=== PATIENT | male | born 1970 | race African-American/Black ===

== ENCOUNTER 2016-09-29 19:30 | Inpatient (IN) | payer MEDICARE, MEDICAID ==
[~2016-09-29] VITALS: Ht 182.9 cm; Wt 111.0 kg
[~2016-09-29 19:30] MED LIST: CLOZ200T PO; DEPA500T3 PO; IBUP800T23 PO; LACT20SO4 PO; LITH300 PO; OMEP20TA39 PO; OMEP40CA2 PO; PALI156P IM; SENN1TAB11 PO
[2016-09-29 19:34] VITALS: BP 117/69; PULSE 129; RESP 16; TEMP 101.6; O2SAT 97
--- NOTE | 2016-09-29 20:49 | PD ---
Physical Exam Time Seen by Provider: 20:45 Narrative 46yo M c/o fever x 2 days. TMAX 102.6. Reports having trouble moving his bowels. Last BM 2 days ago. Feels bloated. Denies chest pain, SOB abd pain, vomiting. Denies cold symptoms or body aches. Last took Ibuprofen about 12:30 today. Patient seen in triage. VS reviewed. Awaiting bed placement. Data Data Last Documented VS Vital Signs Date Time Temp Pulse Resp B/P Pulse Ox O2 Delivery O2 Flow Rate FiO2 09/29/16 19:34 101.6 129 16 117/69 97 Room Air [facility] Supervised Visit with SHA: Jeanine Olson Sep 29, 2016 20:49
--- NOTE | 2016-09-29 22:02 | PD ---
HPI Chief Complaint: GI Complaint Time Seen by Provider: 22:01 Travel History International Travel<30 days: No Contact w/Intl Traveler<30days: No Traveled to known affect area: No History of Present Illness HPI The patient is a 47 year old male who presents to the [facility] emergency department with a history of febrile illness that he reports began 2 days ago. The patient reports that he's also had difficulty with constipation and has not moved his bowels for the last 3 days. He reports that his psychiatrist to give him a pelvic pelvic constipation, however he is unsure of the name of the pill and reports it has not been helping. The patient denies having a primary care physician. He reports that he is a part of the [facility] for his psychiatric care. He reports that he's been diagnosed with schizoaffective disorder. He reports that he is on Depakote, lithium, Clozaril. On review of systems, the patient denies any recent cough or congestion, neck pain, chest pain, shortness of breath, vomiting, diarrhea, urinary symptoms, or neurologic symptoms. The patient reports that he feels like his head is hot. The patient reports that he has abdominal bloating related to his constipation without any focal abdominal pain. He reports having nausea. [facility] Past Medical History Narrative Medical The patient's past medical history is significant for schizoaffective disorder, history of hypertension, history of acid reflux, and chronic constipation. Arthritis: No Asthma: No Autoimmune Disease: No Blood Disorders: No Anxiety: Yes Depression: No Heart Rhythm Problems: No Cancer: No (per patient girlfriend/) Cardiovascular Problems: No (per patient girlfriend/) High Cholesterol: No Chemotherapy: No Chest Pain: No Congestive Heart Failure: No COPD: No Cerebrovascular Accident: No Diabetes: No (per patient girlfriend/) Diminished Hearing: No Endocrine: No Gastrointestinal Disorders: No (Having some blotting and feelings of fullness) GERD: Yes Glaucoma: No Genitourinary: No Headaches: Yes (per patient girlfriend/) Hepatitis: No Hiatal Hernia: No Hypertension: Yes Immune Disorder: No Kidney Stones: No Musculoskeletal: No Neurologic: No Psychiatric: Yes Reproductive: No Respiratory: No Myocardial Infarction: No Radiation Therapy: No Renal Failure: No Schizophrenia: Yes Seizures: No (per patient girlfriend/) Sickle Cell Disease: No Sleep Apnea: No Thyroid Disease: No Ulcer: No Past Surgical History Narrative Surgical The patient's past surgical history is reportedly none. Abdominal Surgery: No AICD: No Cardiac Surgery: No Ear Surgery: No Endocrine Surgery: No Eye Surgery: No Genitourinary Surgery: No Gynecologic Surgery: No Joint Replacement: No Neurologic Surgery: No Oral Surgery: No Pacemaker: No Thoracic Surgery: No Social History Alcohol Use: No Tobacco Use: No Substance Use: No Allergies-Medications (Allergen,Severity, Reaction): Coded Allergies: Milk (Verified Adverse Reaction, Severe, Diarrhea, 09/29/16) Reported Meds & Prescriptions Reported Meds & Active Scripts Active Omeprazole 40 Mg Cap 40 Mg PO DAILY Hm Omeprazole (Omeprazole) 20 Mg Tab 40 Mg PO DAILY Ibuprofen 800 Mg Tab 800 Mg PO Q6H PRN Senna Plus 8.6-50 mg (Senna/Docusate Sodium) 1 Tab Tab 1 Tab PO DAILY Reported Omeprazole 40 Mg Cap 40 Mg PO DAILY Gasquet Carbonate 300 Mg Cap 300 Mg PO HS Depakote ER (Divalproex Sodium) 500 Mg Caro 1,000 Mg PO DAILY Clozapine 100 Mg Tab 300 Mg PO DAILY Invega Sustenna (Paliperidone Palmitate) 156 Mg/Ml Inj 156 Mg IM Q28D *FOR INTRAMUSCULAR USE ONLY* Clozapine 200 Mg Tab 300 Mg PO HS Clozapine 200 Mg Tab 50 Mg PO DAILY Depakote ER 500 mg (Divalproex Sodium) 500 Mg Tab 1 Tab PO DAILY Lactulose 30 Ml Syrp 30 Ml PO DAILY Lithotabs (Gasquet Carbonate) 300 Mg Tab 300 Mg PO DAILY Depakote ER 500 mg (Divalproex Sodium) 500 Mg Caro 1,000 Mg PO HS Review of Systems Except as stated in HPI: all other systems reviewed are Neg General / Constitutional: Positive: Fever Eyes: No: Visual changes HENT: No: Headaches, Rhinorrhea, Congestion Cardiovascular: No: Chest Pain or Discomfort, Dyspnea on exertion Respiratory: No: Shortness of Breath Gastrointestinal: Positive: Nausea, Constipation, No: Vomiting, Diarrhea, Abdominal Pain, Hematemesis, Hematochezia, Changes in Bowel Habits, Indigestion , Loss of Appetite Genitourinary: No: Urgency, Frequency, Dysuria Musculoskeletal: No: Pain Skin: No Rash Neurologic: No: Weakness, Focal Abnormalities, Headache, Change in Mentation, Slurred Speech, Sensory Disturbance Psychiatric: No: Depression Endocrine: No: Polydipsia Hematologic/Lymphatic: No: Easy Bruising Physical Exam Narrative General: The patient is well-developed well-nourished male in no acute distress. Head and Neck exam: Head is normocephalic atraumatic. Eyes: EOMI, pupils are equal round and reactive to light. Nose: Midline septum with pink mucous membranes Mouth: Dentition unremarkable. Moist mucus membranes. Posterior oropharynx is not erythematous. No tonsillar hypertrophy. Uvula midline. Airway patent. Neck: No palpable lymphadenopathy. No nuchal rigidity. No thyromegaly. Cardiovascular: Sinus tachycardia in the low 100 without murmurs, gallops, or rubs. No pulse deficit to the extremities and simultaneous auscultation and palpation of his radial artery. Lungs: Clear to auscultation bilaterally. No wheezes, rhonchi, or rales. Abdomen: Soft, with reported discomfort on palpation in the left lower quadrant of the abdomen, no other tenderness on palpation of the other quadrants of the abdomen. No guarding, rebound, or rigidity. No tenderness on palpation of McBurney's point. Normal bowel sounds are audible. Negative [place] sign. Extremities: No clubbing, cyanosis, or edema. 2+ pulses in all 4 extremities. No calf tenderness on palpation. Back: No costovertebral angle tenderness to palpation. Neurologic Exam: Grossly nonfocal. Skin Exam: No rash noted. Intact skin that is warm and dry. Data Data Last Documented VS Vital Signs Date Time Temp Pulse Resp B/P Pulse Ox O2 Delivery O2 Flow Rate FiO2 09/30/16 00:18 98.9 09/30/16 00:15 18 09/29/16 23:20 104 98 Room Air 09/29/16 22:46 130/65 Orders Electrocardiogram (09/29/16 22:10) Complete Blood Count With Diff (09/29/16 22:10) Comprehensive Metabolic Panel (09/29/16 22:10) Blood Culture (09/29/16 22:10) Lipase (09/29/16 22:10) Urinalysis - C+S If Indicated (09/29/16 22:10) Magnesium (Mg) (09/29/16 22:10) Valproic Acid (Depakene) (09/29/16 22:10) Gasquet (Li) (09/29/16 22:10) Chest, Single Ap (09/29/16 22:10) Iv Access Insert/Monitor (09/29/16 22:10) Ecg Monitoring (09/29/16 22:10) Oximetry (09/29/16 22:10) Lactic Acid Sepsis Protocol (09/29/16 22:10) Sodium Chlor 0.9% 1000 Ml Inj (Ns 1000 M (09/29/16 22:15) Ondansetron Inj (Zofran Inj) (09/29/16 22:15) Acetaminophen (Tylenol) (09/29/16 22:15) Sodium Chlor 0.9% 1000 Ml Inj (Ns 1000 M (09/30/16 00:15) Ceftriaxone Inj (Rocephin Inj) (09/30/16 00:15) Azithromycin Inj (Zithromax Inj) (09/30/16 00:15) Ct Abd/Pel W Iv Contrast(Rout) (09/30/16 00:16) Sodium Chlorid 0.9% 500 Ml Inj (Ns 500 M (09/30/16 00:30) Iohexol 350 Inj (Omnipaque 350 Inj) (09/30/16 01:09) Ondansetron Inj (Zofran Inj) (09/30/16 01:45) Admit Order (Ed Use Only) (09/30/16 02:10) Labs Laboratory Tests Test 09/29/16 09/29/16 09/30/16 22:25 23:15 00:35 Sodium Level 135 MEQ/L Potassium Level 5.3 MEQ/L Chloride Level 106 MEQ/L Carbon Dioxide Level 23.8 MEQ/L Anion Gap 5 MEQ/L Blood Urea Nitrogen 9 MG/DL Creatinine 1.55 MG/DL Estimat Glomerular Filtration 59 ML/MIN Rate Random Glucose 97 MG/DL Calcium Level 8.5 MG/DL Magnesium Level 2.3 MG/DL Total Bilirubin 0.6 MG/DL Aspartate Amino Transf 25 U/L (AST/SGOT) Alanine Aminotransferase 13 U/L (ALT/SGPT) Alkaline Phosphatase 47 U/L Total Protein 8.3 GM/DL Albumin 3.9 GM/DL Lipase 65 U/L Valproic Acid (Depakene) Level 88 MCG/ML Gasquet Level 0.5 MEQ/L Urine Color ORANGE Urine Turbidity HAZY Urine pH 6.0 Urine Specific [employer] 1.033 Urine Protein 100 mg/dL Urine Glucose (UA) NEG mg/dL Urine Ketones TRACE mg/dL Urine Occult Blood NEG Urine Nitrite NEG Urine Bilirubin NEG Urine Urobilinogen 4.0 MG/DL Urine Leukocyte Esterase NEG Urine RBC 2 /hpf Urine WBC 4 /hpf Urine Squamous Epithelial 1 /hpf Cells Urine Hyaline Casts 3 /lpf Urine Mucus MANY /lpf Microscopic Urinalysis Comment CULT NOT INDICATED Lactic Acid Level 2.1 mmol/L 1.5 mmol/L Thyroid Stimulating Hormone 0.753 uIU/ML 3rd Gen White Blood Count 8.6 TH/MM3 Red Blood Count 4.20 MIL/MM3 Hemoglobin 12.4 GM/DL Hematocrit 36.9 % Mean Corpuscular Volume 87.9 FL Mean Corpuscular Hemoglobin 29.5 PG Mean Corpuscular Hemoglobin 33.5 % Concent Red Cell Distribution Width 14.8 % Platelet Count 133 TH/MM3 Mean Platelet Volume 9.3 FL Neutrophils (%) (Auto) % Lymphocytes (%) (Auto) % Monocytes (%) (Auto) % Eosinophils (%) (Auto) % Basophils (%) (Auto) % Neutrophils # (Auto) TH/MM3 Lymphocytes # (Auto) TH/MM3 Monocytes # (Auto) TH/MM3 Eosinophils # (Auto) TH/MM3 Basophils # (Auto) TH/MM3 CBC Comment AUTO DIFF Differential Total Cells 100 Counted Neutrophils % (Manual) 60 % Band Neutrophils % 28 % Lymphocytes % 10 % Monocytes % 2 % Neutrophils # (Manual) 7.6 TH/MM3 Differential Comment FINAL DIFF MANUAL Toxic Vacuolation PRESENT Platelet Estimate LOW Platelet Morphology Comment NORMAL MDM Medical Decision Making Medical Screen Exam Complete: Yes Emergency Medical Condition: Yes Medical Record Reviewed: Yes Interpretation(s) Last Impressions Abdomen/Pelvis CT 09/30/16 0016 Signed Impressions: Service Date/Time: Friday, September 30, 2016 01:07 - CONCLUSION: Mild dilation of the distal small bowel loops with a few air-fluid levels. There is also some mild wall thickening of the distal small bowel loops. Moderate amount of stool in the colon. Findings suggest ileus, however an early small bowel obstruction can't be excluded. Recommend serial films. Jose Manuel Patterson MD Chest X-Ray 09/29/16 4000 Signed Impressions: Service Date/Time: [place], September 29, 2016 22:10 - CONCLUSION: Mild perihilar infiltrates. Luis E Malik MD Differential Diagnosis Viral syndrome, versus urinary tract infection, versus pneumonia, versus sepsis of undetermined origin, versus diverticulitis, versus colitis Narrative Course During the course of the patients emergency department visit, the patients history, examination, and differential diagnosis were reviewed with the patient. The patient had IV access obtained and blood work sent for analysis. The patient was placed on a night monitor with oximetry and blood pressure monitoring. An ECG was done on arrival. The patient's ECG shows a sinus tachycardia rate of 116, borderline left axis deviation, nonspecific T-wave abnormalities, no acute ST segment elevation, QRS duration is 84 ms, QTC 310 ms. The patient was initially provided Tylenol 650 by mouth 1 for fever, Zofran 4 mg IV for nausea, normal saline 1 L IV fluid bolus. The patients laboratory studies were reviewed and remarkable for a white count of 8.6, hemoglobin 12.4, platelets 133 with 28 bands, toxic vacuolation. CMP is remarkable for sodium of 135, potassium 5.3 with hemolysis noted, creatinine 1.55, total protein 8.3, lipase 65, lactic acid is 2.1. Radiology studies were reviewed and remarkable for a chest x-ray that shows mild perihilar infiltrates. Given the patient's bandemia, fever, the patient was treated ammonia with Rocephin and Zithromax IV. CT scan of the abdomen and pelvis shows mild dilatation of the distal small bowel loops with a few air- fluid levels. There is also some mild wall thickening of the distal small bowel loops. Moderate amount of stool in the colon, findings suggest ileus, however an early small bowel obstruction cannot be excluded recommend serial films. The patient will be admitted to the family practice residents. The patients results were discussed with the patient, including the plan of care. I explained that further testing and/ or monitoring is indicated based on the patients history, examination, and/ or laboratory findings. Therefore, I recommended admission for additional evaluation. The patient expressed understanding and was agreeable with this plan. The patient was admitted to the hospital in stable condition and sent to a bed under the care of the family practice residents. Sepsis Criteria SIRS Criteria (2 or more): Temp > 100.9 or < 96.8, Heart rate over 90, WBC > 02301, < 4000 or > 10% bands Severe Sepsis (+one): Lactate >2 Criteria Outcome: Meets SIRS criteria, Meets severe sepsis criteria Physician Communication Physician Communication The Patient's case was discussed with the family practice residents who did agree to admit the patient for further evaluation and treatment at this time. Diagnosis Primary Impression: Community acquired pneumonia Qualified Code: J18.9 - Community acquired pneumonia, unspecified laterality Additional Impressions: Ileus Bandemia Admitting Information Admitting Physician Requests: Admit Anabel Maldonado MD Sep 29, 2016 22:02
[2016-09-29] MEDS ORDERED: ACETAMINOPHEN 325 MG TAB PO ONE (22:15)
[2016-09-29] MEDS ORDERED: ONDANSETRON HCL 4 MG/2 ML VIAL IV ONE (22:15)
[2016-09-29] MEDS ORDERED: SODIUM CHLOR 0.9% 1000 ML INJ 1,000 ML IV ONE (22:15)
--- NOTE | 2016-09-29 22:41 | RADRPT ---
EXAM DATE/TIME: 09/29/2016 22:10 [facility] COMPARISON: No previous studies available for comparison. INDICATIONS : Fever MEDICAL HISTORY : None. SURGICAL HISTORY : None. ENCOUNTER: Initial ACUITY: 3 days PAIN SCORE: 0/10 LOCATION: chest FINDINGS: Mild bilateral perihilar infiltrates are noted, left slightly more so than right. No dense/confluent consolidation. No pleural effusion or pneumothorax. Normal heart size. CONCLUSION: Mild perihilar infiltrates. Luis E Malik MD on September 29, 2016 at 22:40 Board Certified Radiologist. This report was verified electronically.
[2016-09-29 22:42] LABS: BLOOD, URINE NEG (NEG); COMMENT (UR) CULT NOT INDICATED; CULTURE IF INDICATED CULT NOT INDICATED; GLUCOSE,URINE NEG (NEG); HYALINE CAST, URINE 3 /lpf (RARE); KETONE, URINE TRACE mg/dL (NEG); MUCUS URINE MANY /lpf (OCC); NITRITE,URINE NEG (NEG); SQUAMOUS EPITHELIAL CELL URINE 1 /hpf (0-5)
[2016-09-29 22:43] VITALS: RESP 18
[2016-09-29 22:44] LABS: URINE COLOR ORANGE (YELLW/STRAW)
[2016-09-29 22:46] VITALS: BP 130/65; PULSE 110; RESP 18; O2SAT 97
[2016-09-29 23:16] LABS: ALT (GPT) 13 U/L (12-78)
[2016-09-29 23:18] LABS: ALKALINE PHOSPHATASE 47 U/L (45-117); TOTAL BILIRUBIN ADULT 0.6 MG/DL (0.2-1.0)
[2016-09-29 23:19] LABS: HEMATOCRIT 36.9 % (39.0-51.0); MEAN CELL VOLUME 87.9 FL (80.0-100.0); MEAN CORPUSCULAR HEMOGLOBIN 29.5 PG (27.0-34.0); MEAN CORPUSCULAR HGB CONC 33.5 % (32.0-36.0); PLATELET COUNT 133 TH/MM3 (150-450); RED CELL DISTRIBUTION WIDTH 14.8 % (11.6-17.2); WHITE BLOOD COUNT 8.6 TH/MM3 (4.0-11.0)
[2016-09-29 23:20] VITALS: PULSE 104; RESP 18; O2SAT 98
[2016-09-29 23:20] LABS: HEMO FLAGS AUTO DIFF
[2016-09-29 23:26] LABS: ANION GAP 5 MEQ/L (5-15); AST (GOT) 25 U/L (15-37); BICARBONATE 23.8 MEQ/L (21.0-32.0); BLOOD UREA NITROGEN 9 MG/DL (7-18); CHLORIDE 106 MEQ/L (98-107); GLOMERULAR FILTRATION RATE 59 ML/MIN (>89); MAGNESIUM 2.3 MG/DL (1.5-2.5); SODIUM (NA) 135 MEQ/L (136-145)
[2016-09-29 23:46] LABS: POTASSIUM 5.3 MEQ/L (3.5-5.1)
[2016-09-30] VITALS (8 sets, daily range): BP systolic 107–134; BP diastolic 58–88; PULSE 101–115; RESP 18–24; TEMP 98.7–102.1; O2SAT 95–97
[2016-09-30] MEDS ORDERED: SODIUM CHLOR 0.9% 1000 ML INJ 1,000 ML IV ONE ×2 (00:15→12:15)
[2016-09-30] MEDS ORDERED: cefTRIAXone INJ 1,000 MG in SODIUM CHLORIDE 0.9% INJ 100 ML IV ONE (00:15)
[2016-09-30] MEDS ORDERED: AZITHROMYCIN INJ 500 MG in SODIUM CHLOR 0.9% 250 ML INJ 250 ML IV ONE (00:15)
[2016-09-30 00:19] LABS: BANDS 28 % (0-6); NEUTROPHIL # MANUAL DIFF 7.6 TH/MM3 (1.8-7.7); POLYS (SEG NEUTROPHILS) 60 % (16-70); WBC DIFF SAMPLE 100
[2016-09-30 00:20] LABS: PLATELET ESTIMATE SMEAR LOW (NORMAL); PLATELET MORPHOLOGY NORMAL (NORMAL); SCAN/DIFF FINAL DIFF MANUAL; TOXIC VACUOLATION PRESENT (NONE SEEN)
[2016-09-30] MEDS ORDERED: SODIUM CHLORID 0.9% 500 ML INJ 500 ML IV ONE (00:30)
[2016-09-30 00:34] LABS: LACTIC ACID GHOST NOT REPORTABLE
[2016-09-30] MEDS ORDERED: IOHEXOL 350 MG/ML 10 ML VIAL (for RAD DIAG) IV ONE (01:09)
--- NOTE | 2016-09-30 01:22 | RADRPT ---
EXAM DATE/TIME: 09/30/2016 01:07 [facility] COMPARISON: No previous studies available for comparison. INDICATIONS : Abdominal pain with constipation and fever. IV CONTRAST: 95 cc Omnipaque 350 (iohexol) IV ORAL CONTRAST: No oral contrast ingested. RADIATION DOSE: 16.26 CTDIvol (mGy) MEDICAL HISTORY : Hypertension. Gastroesophageal reflux disease. SURGICAL HISTORY : None. ENCOUNTER: Initial ACUITY: 1 day PAIN SCALE: 5/10 LOCATION: Bilateral abdomen TECHNIQUE: Volumetric scanning of the abdomen and pelvis was performed. Using automated exposure control and ad justment of the mA and/or kV according to patient size, radiation dose was kept as low as reasonably achievable to obtain optimal diagnostic quality images. DICOM format image data is available electro nically for review and comparison. FINDINGS: LOWER LUNGS: The visualized lower lungs are clear. LIVER: Homogeneous density without lesion. There is no dilation of the biliary tree. No calcified gallston es. SPLEEN: Normal size without lesion. PANCREAS: Within normal limits. KIDNEYS: Normal in size and shape. There is no mass, stone or hydronephrosis. ADRENAL GLANDS: Within normal limits. VASCULAR: There is no aortic aneurysm. BOWEL/MESENTERY: Moderate amount of stool throughout the colon. Proximal small bowel loops are normal in dimension. Distal small bowel loops are mildly distended measuring up to 2.8 cm. Multiple air-fluid levels seen in distal small bowel loops present there also appears to be some wall thickening of the distal smal l bowel. No evidence of free fluid. ABDOMINAL WALL: Within normal limits. RETROPERITONEUM: There is no lymphadenopathy. BLADDER: No wall thickening or mass. REPRODUCTIVE: Within normal limits. INGUINAL: There is no lymphadenopathy or hernia. MUSCULOSKELETAL: Within normal limits for patient age. CONCLUSION: Mild dilation of the distal small bowel loops with a few air-fluid levels. There is also some mild w all thickening of the distal small bowel loops. Moderate amount of stool in the colon. Findings sug gest ileus, however an early small bowel obstruction can't be excluded. Recommend serial films. Jose Manuel Patterson MD on September 30, 2016 at 1:15 Board Certified Radiologist. This report was verified electronically.
[2016-09-30] MEDS ORDERED: ONDANSETRON HCL 4 MG/2 ML VIAL IV ONE (01:45)
[2016-09-30] MEDS ORDERED: CLOZ100T3 PO (02:52)
[2016-09-30] MEDS ORDERED: OMEP40CA2 PO (02:52)
[2016-09-30] MEDS ORDERED: DEPA500T3 PO (02:52)
[2016-09-30] MEDS ORDERED: LITH300C2 PO (02:52)
--- NOTE | 2016-09-30 02:57 | HHI.HP ---
[facility] Service Family Medicine Primary Care Physician Non-Staff Admission Diagnosis Pneumonia, Ileus, bandemia Diagnoses: International Travel<30 Days: No Contact w/Intl Traveler<30days: No Known Affected Area: No History of Present Illness 46 year old male presents with fever, loss of appetite, vomiting, constipation, and bloating that started yesterday. He has a history of chronic constipation. He had 3 episodes of vomiting yesterday. Vomitus was not bilious. Fevers started yesterday with Tmax of 102.6 measured at home. Tmax in ED is 101.6. He has diffuse mild crampy lower abdominal pain. He gets full easily after eating a meal. He also has a mild headache. His fiance is present and had fever and vomiting a few days ago, that quickly resolved. He does not have any diarrhea. His last bowel movement was 2 days ago and normal. He has no runny nose, sore throat, coughing, difficulty breathing, chest pain, or calf tenderness. He has no recent medication changes. He is only eating about half his normal diet due to loss of appetite. No unintentional weight loss or night sweats. He takes lithium, clozapine, and Depakote for schizoaffective disorder. Review of Systems Constitutional: COMPLAINS OF: Fever, Chills, Change in appetite, DENIES: Diaphoretic episodes, Fatigue, Weight gain, Weight loss Endocrine: DENIES: Polydipsia, Polyuria, Polyphagia Eyes: DENIES: Diplopia, Vision loss, Double Vision Ears, nose, mouth, throat: DENIES: Nasal discharge, Ear Pain, Running Nose, Sinus Pain Respiratory: DENIES: Apneas, Cough, Snoring, Wheezing, Shortness of breath Cardiovascular: DENIES: Chest pain, Syncope, Lower Extremity Edema, Claudication Gastrointestinal: COMPLAINS OF: Abdominal pain, Nausea, Vomiting, DENIES: Black stools, Bloody stools, Diarrhea, Difficulty Swallowing, Anorexia Genitourinary: DENIES: Dysuria, Nocturia Musculoskeletal: DENIES: Joint pain, Back pain Integumentary: DENIES: Rash Hematologic/lymphatic: DENIES: Lymphadenopathy Immunologic/allergic: DENIES: Eczema Neurologic: COMPLAINS OF: Headache, DENIES: Abnormal gait, Seizures, Speech Problems, Tremor Psychiatric: DENIES: Anxiety, Depression, Agitation Past Family Social History Past Medical History Schizoaffective disorder Hypertension 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 Pelayo ([facility]) q monthly Past Surgical History None Allergies: Coded Allergies: Milk (Verified Adverse Reaction, Severe, Diarrhea, 09/29/16) Family History Mom and dad still alive, anxiety and depression Father: unknown Sister, alive and healthy Grandma: unknown cancer Social History Smoking: none Drinking: none Drug use: none Lives with fiance No children Not working Disability Worked at a golf course From [facility] in [facility] Physical Exam Vital Signs Vital Signs Date Time Temp Pulse Resp B/P Pulse Ox O2 Delivery O2 Flow Rate FiO2 09/30/16 00:18 98.9 09/30/16 00:15 18 09/29/16 23:20 104 18 98 Room Air 09/29/16 22:46 110 18 130/65 97 Room Air 09/29/16 22:43 18 Room Air 09/29/16 19:34 101.6 129 16 117/69 97 Room Air Physical Exam GENERAL: Sitting up in bed, appears comfortable, no distress SKIN: No rashes, ecchymoses or lesions. HEAD: Atraumatic. Normocephalic. No temporal or scalp tenderness. EYES: Pupils equal round and reactive. Extraocular motions intact. No scleral icterus. No injection or drainage. ENT: Nose without bleeding, purulent drainage or septal hematoma. Throat without erythema, tonsillar hypertrophy or exudate. Uvula midline. Airway patent. NECK: Trachea midline. No JVD or lymphadenopathy. Supple, nontender, no meningeal signs. CARDIOVASCULAR: Regular rate and rhythm without murmurs, gallops, or rubs. Regular pulses. RESPIRATORY: Clear to auscultation. Breath sounds equal bilaterally. No wheezes , rales, or rhonchi. GASTROINTESTINAL: Mild tenderness to palpation diffusely, no rebound tenderness or guarding, no organomegaly, decreased bowel sounds. MUSCULOSKELETAL: Extremities without clubbing, cyanosis, or edema. No joint tenderness, effusion, or edema noted. No calf tenderness. NEUROLOGICAL: Awake and alert. Cranial nerves II through XII intact. Motor and sensory grossly within normal limits. Five out of 5 muscle strength in all muscle groups. Normal speech. Laboratory Laboratory Tests Test 09/29/16 09/29/16 09/30/16 22:25 23:15 00:35 Sodium Level 135 Potassium Level 5.3 Chloride Level 106 Carbon Dioxide Level 23.8 Anion Gap 5 Blood Urea Nitrogen 9 Creatinine 1.55 Estimat Glomerular Filtration 59 Rate Random Glucose 97 Calcium Level 8.5 Magnesium Level 2.3 Total Bilirubin 0.6 Aspartate Amino Transf 25 (AST/SGOT) Alanine Aminotransferase 13 (ALT/SGPT) Alkaline Phosphatase 47 Total Protein 8.3 Albumin 3.9 Lipase 65 Valproic Acid (Depakene) Level 88 Lutsen Level 0.5 Urine Color ORANGE Urine Turbidity HAZY Urine pH 6.0 Urine Specific [place] 1.033 Urine Protein 100 Urine Glucose (UA) NEG Urine Ketones TRACE Urine Occult Blood NEG Urine Nitrite NEG Urine Bilirubin NEG Urine Urobilinogen 4.0 Urine Leukocyte Esterase NEG Urine RBC 2 Urine WBC 4 Urine Squamous Epithelial 1 Cells Urine Hyaline Casts 3 Urine Mucus MANY Microscopic Urinalysis Comment CULT NOT INDICATED Lactic Acid Level 2.1 1.5 White Blood Count 8.6 Red Blood Count 4.20 Hemoglobin 12.4 Hematocrit 36.9 Mean Corpuscular Volume 87.9 Mean Corpuscular Hemoglobin 29.5 Mean Corpuscular Hemoglobin 33.5 Concent Red Cell Distribution Width 14.8 Platelet Count 133 Mean Platelet Volume 9.3 Neutrophils (%) (Auto) Lymphocytes (%) (Auto) Monocytes (%) (Auto) Eosinophils (%) (Auto) Basophils (%) (Auto) Neutrophils # (Auto) Lymphocytes # (Auto) Monocytes # (Auto) Eosinophils # (Auto) Basophils # (Auto) CBC Comment AUTO DIFF Differential Total Cells 100 Counted Neutrophils % (Manual) 60 Band Neutrophils % 28 Lymphocytes % 10 Monocytes % 2 Neutrophils # (Manual) 7.6 Differential Comment FINAL DIFF MANUAL Toxic Vacuolation PRESENT Platelet Estimate LOW Platelet Morphology Comment NORMAL Date/Time Procedure Status Source Growth 09/29/16 22:25 Aerobic Blood Culture Received Blood Peripheral Pending 09/29/16 22:25 Anaerobic Blood Culture Received Blood Peripheral Pending Result Diagram: 09/29/16 2315 09/29/16 2225 Imaging Last 72 hours Impressions Abdomen/Pelvis CT 09/30/16 0016 Signed Impressions: Service Date/Time: Friday, September 30, 2016 01:07 - CONCLUSION: Mild dilation of the distal small bowel loops with a few air-fluid levels. There is also some mild wall thickening of the distal small bowel loops. Moderate amount of stool in the colon. Findings suggest ileus, however an early small bowel obstruction can't be excluded. Recommend serial films. Jose Manuel Patterson MD Chest X-Ray 09/29/16 7400 Signed Impressions: Service Date/Time: Thursday, September 29, 2016 22:10 - CONCLUSION: Mild perihilar infiltrates. Luis E Malik MD Septic Shock Reassessment Heart: Regular rate and rhythm Lungs: Clear Skin: Warm Capillary Refill: <2 seconds Assessment and Plan Assessment and Plan 46 year old male presents with fever, bloating, poor appetite, nausea, vomiting , constipation, with CT scan evidence of a developing ileus. Code Status FULL CODE Discussed Condition With Discussed with Dr. Lamas Problem List: (1) Community acquired pneumonia Status: Acute Plan: Fever up to 102.6, chest x-ray showing mild perihilar infiltrates. No coughing or congestion, lungs sound clear on exam. - Given no clear source of infection, will treat empirically for community- acquired pneumonia given the perihilar infiltrates. - Start ceftriaxone and azithromycin for coverage of community acquired/ atypical pneumonia. - Check urinary legionella and pneumococcal, especially given GI symptoms and atypical picture. (2) Fever Status: Acute Plan: Fever up to 102.6. Had tachycardia up to 129 on admission, responsive to IVF. WBC 8.6 with bandemia of 28. Urinalysis negative for infection. Chest x- ray with zulma-hilar infiltrates, possibly a developing pneumonia. However, no coughing or congestion present. Has abdominal pain and bloating, but CT scan showing only ileus without obvious obstruction. Abdominal exam fairly benign besides mild tenderness to palpation. Lactic acid 2.1, repeat 1.5. Maintaining blood pressures. - Giving azithromycin and Rocephin to cover atypical/community-acquired pneumonia - IVF resuscitation as needed. - Blood cultures pending - No skin/soft-tissue infections apparent - Mild headache but no neck stiffness or neurological signs (3) Ileus Status: Acute Plan: Ileus evident on CT scan with a history of chronic constipation. On antipsychotic medications with anticholinergic properties. Not on any opiates at home. No history of abdominal surgeries reported. - Low threshold for NG tube for decompression - Clear liquid diet, advance as tolerated - Monitor electrolytes (4) Acute kidney injury Status: Acute Plan: BUN 9, creatinine 1.55, GFR 59. Baseline creatinine is in normal range. Unclear etiology although clinically dehydrated. BUN/Creatinine ratio is in the intrinsic injury range. - Check urine eosinophils - Avoid nephrotoxic agents - Give IVF for resuscitation - Avoid nephrotoxic agents, renally dose medications - Avoid IV contrast if possible - Monitor intake/output - Renal ultrasound if not improving - Renal consult if not improving (5) Constipation Status: Chronic Plan: Chronic constipation in the setting of acute ileus. - Zulma-colace 2 tabs bid - Monitor stool output (6) Paranoid schizophrenia Status: Chronic Plan: - Continue home medications: - Lutsen 300 mg qHS - Clozapine 300 mg daily - Depakote 1000 mg daily (7) Nutrition, metabolism, and development symptoms Status: Acute Plan: - IVF NS at maintenance, increase as needed to keep well hydrated - Mild hyperkalemia, repeat BMP in the morning. - Sodium borderline low, receiving normal saline at maintenance - Acute kidney injury present, monitor renal function and avoid nephrotoxic agents - Clear liquid diet for ileus, advance as tolerated (8) No contraindication to deep vein thrombosis (DVT) prophylaxis Status: Acute Plan: - Heparin 5000 units tid Javier Condon MD R3 Sep 30, 2016 02:56
[2016-09-30] MEDS ORDERED: HEPARIN SODIUM - SQ 10,000 UNITS/ML VIAL SQ SCH (03:15)
[2016-09-30] MEDS ORDERED: NALOXONE HCL 0.4 MG/ML AMP IV PRN (03:15)
[2016-09-30] MEDS ORDERED: BISACODYL 10 MG SUPP RECTAL PRN (03:15)
[2016-09-30] MEDS ORDERED: MAGNESIUM HYDROXIDE SUSP 30 ML CUP PO PRN (03:15)
[2016-09-30] MEDS ORDERED: SODIUM CHLORIDE 0.9% FLUSH 10 ML FLUSH IV FLUSH PRN (03:15)
[2016-09-30] MEDS ORDERED: SENNOSIDES 8.6 MG TAB PO PRN (03:15)
[2016-09-30] MEDS ORDERED: ONDANSETRON HCL 4 MG/2 ML VIAL IV PRN (03:15)
[2016-09-30] MEDS ORDERED: LACTULOSE SYRUP 20 GM/30 ML CUP PO PRN (03:15)
[2016-09-30] MEDS: SODIUM CHLOR 0.9% 1000 ML INJ 1,000 ML IV SCH ×3 (03:58→21:31)
--- NOTE | 2016-09-30 03:59 | HHI.HP ---
[facility] Service Family Medicine Primary Care Physician Non-Staff Admission Diagnosis Pneumonia, Ileus, bandemia Diagnoses: (1) Community acquired pneumonia (2) Fever (3) Ileus (4) Acute kidney injury (5) Constipation (6) Paranoid schizophrenia (7) Nutrition, metabolism, and development symptoms (8) No contraindication to deep vein thrombosis (DVT) prophylaxis International Travel<30 Days: No Contact w/Intl Traveler<30days: No Known Affected Area: No History of Present Illness 46 year old male presents with fever, loss of appetite, vomiting, constipation, and bloating that started yesterday. He has a history of chronic constipation. He had 3 episodes of vomiting yesterday. Vomitus was not bilious. Fevers started yesterday with Tmax of 102.6 measured at home. Tmax in ED is 101.6. He has diffuse mild crampy lower abdominal pain. He gets full easily after eating a meal. He also has a mild headache. His fiance is present and had fever and vomiting a few days ago, that quickly resolved. He does not have any diarrhea. His last bowel movement was 2 days ago and normal. He has no runny nose, sore throat, coughing, difficulty breathing, chest pain, or calf tenderness. He has no recent medication changes. He is only eating about half his normal diet due to loss of appetite. No unintentional weight loss or night sweats. He takes lithium, clozapine, and Depakote for schizoaffective disorder. (Javier Condon MD R3) Review of Systems Constitutional: COMPLAINS OF: Fever, Chills, Change in appetite, DENIES: Diaphoretic episodes, Fatigue, Weight gain, Weight loss, Dizziness Endocrine: DENIES: Polydipsia, Polyuria Eyes: DENIES: Blurred vision, Diplopia, Vision loss, Double Vision Ears, nose, mouth, throat: DENIES: Nasal discharge, Throat pain, Hoarseness, Ear Pain, Running Nose, Sinus Pain Respiratory: DENIES: Apneas, Cough, Wheezing, Hemoptysis, Sputum production, Shortness of breath Cardiovascular: DENIES: Chest pain, Syncope, Dyspnea on Exertion, Lower Extremity Edema Gastrointestinal: COMPLAINS OF: Abdominal pain, Constipation, Nausea, Vomiting , DENIES: Black stools, Bloody stools, Diarrhea Genitourinary: DENIES: Urgency, Dysuria, Nocturia Musculoskeletal: DENIES: Joint pain, Stiffness, Back pain, Neck pain Integumentary: DENIES: Rash Hematologic/lymphatic: DENIES: Lymphadenopathy Immunologic/allergic: DENIES: Eczema Neurologic: COMPLAINS OF: Headache, Tremor, DENIES: Seizures Psychiatric: DENIES: Anxiety, Confusion, Mood changes, Depression, Agitation, Delusions (Javier Condon MD R3) Past Family Social History Past Medical History Schizoaffective disorder Hypertension 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 Pelayo ([facility] q monthly Past Surgical History None (Javier Condon MD R3) Allergies: Coded Allergies: milk (Unverified Adverse Reaction, Severe, Diarrhea, 09/30/16) Family History Mom and dad still alive, anxiety and depression Father: unknown Sister, alive and healthy Grandma: unknown cancer Social History Smoking: none Drinking: none Drug use: none Lives with fiance No children Not working Disability Worked at a [employer] [facility] (Javier Condon MD R3) Physical Exam Vital Signs Vital Signs Date Time Temp Pulse Resp B/P Pulse Ox O2 Delivery O2 Flow Rate FiO2 09/30/16 00:18 98.9 09/30/16 00:15 18 09/29/16 23:20 104 18 98 Room Air 09/29/16 22:46 110 18 130/65 97 Room Air 09/29/16 22:43 18 Room Air 09/29/16 19:34 101.6 129 16 117/69 97 Room Air Physical Exam GENERAL: Sitting up in bed, appears comfortable, no distress SKIN: No rashes, ecchymoses or lesions. HEAD: Atraumatic. Normocephalic. No temporal or scalp tenderness. EYES: Pupils equal round and reactive. Extraocular motions intact. No scleral icterus. No injection or drainage. ENT: Nose without bleeding, purulent drainage or septal hematoma. Throat without erythema, tonsillar hypertrophy or exudate. Uvula midline. Airway patent. NECK: Trachea midline. No JVD or lymphadenopathy. Supple, nontender, no meningeal signs. CARDIOVASCULAR: Regular rate and rhythm without murmurs, gallops, or rubs. Regular pulses. RESPIRATORY: Clear to auscultation. Breath sounds equal bilaterally. No wheezes , rales, or rhonchi. GASTROINTESTINAL: Mild tenderness to palpation diffusely, no rebound tenderness or guarding, no organomegaly, decreased bowel sounds. MUSCULOSKELETAL: Extremities without clubbing, cyanosis, or edema. No joint tenderness, effusion, or edema noted. No calf tenderness. NEUROLOGICAL: Awake and alert. Cranial nerves II through XII intact. Motor and sensory grossly within normal limits. Five out of 5 muscle strength in all muscle groups. Normal speech. Laboratory Laboratory Tests Test 09/29/16 09/29/16 09/30/16 22:25 23:15 00:35 Sodium Level 135 Potassium Level 5.3 Chloride Level 106 Carbon Dioxide Level 23.8 Anion Gap 5 Blood Urea Nitrogen 9 Creatinine 1.55 Estimat Glomerular Filtration 59 Rate Random Glucose 97 Calcium Level 8.5 Magnesium Level 2.3 Total Bilirubin 0.6 Aspartate Amino Transf 25 (AST/SGOT) Alanine Aminotransferase 13 (ALT/SGPT) Alkaline Phosphatase 47 Total Protein 8.3 Albumin 3.9 Lipase 65 Valproic Acid (Depakene) Level 88 [place] Level 0.5 Urine Color ORANGE Urine Turbidity HAZY Urine pH 6.0 Urine Specific [place] 1.033 Urine Protein 100 Urine Glucose (UA) NEG Urine Ketones TRACE Urine Occult Blood NEG Urine Nitrite NEG Urine Bilirubin NEG Urine Urobilinogen 4.0 Urine Leukocyte Esterase NEG Urine RBC 2 Urine WBC 4 Urine Squamous Epithelial 1 Cells Urine Hyaline Casts 3 Urine Mucus MANY Microscopic Urinalysis Comment CULT NOT INDICATED Lactic Acid Level 2.1 1.5 Thyroid Stimulating Hormone 0.753 3rd Gen White Blood Count 8.6 Red Blood Count 4.20 Hemoglobin 12.4 Hematocrit 36.9 Mean Corpuscular Volume 87.9 Mean Corpuscular Hemoglobin 29.5 Mean Corpuscular Hemoglobin 33.5 Concent Red Cell Distribution Width 14.8 Platelet Count 133 Mean Platelet Volume 9.3 Neutrophils (%) (Auto) Lymphocytes (%) (Auto) Monocytes (%) (Auto) Eosinophils (%) (Auto) Basophils (%) (Auto) Neutrophils # (Auto) Lymphocytes # (Auto) Monocytes # (Auto) Eosinophils # (Auto) Basophils # (Auto) CBC Comment AUTO DIFF Differential Total Cells 100 Counted Neutrophils % (Manual) 60 Band Neutrophils % 28 Lymphocytes % 10 Monocytes % 2 Neutrophils # (Manual) 7.6 Differential Comment FINAL DIFF MANUAL Toxic Vacuolation PRESENT Platelet Estimate LOW Platelet Morphology Comment NORMAL Date/Time Procedure Status Source Growth 09/29/16 22:25 Legionella Antigen Received Urine Clean Catch Pending 09/29/16 22:25 Streptococcus pneumoniae Antigen (M Received Urine Clean Catch Pending 09/29/16 22:25 Aerobic Blood Culture Received Blood Peripheral Pending 09/29/16 22:25 Anaerobic Blood Culture Received Blood Peripheral Pending (Javier Condon MD R3) Result Diagram: 09/29/16 2315 09/29/16 2225 Imaging Last 72 hours Impressions Abdomen/Pelvis CT 09/30/16 0016 Signed Impressions: Service Date/Time: Friday, September 30, 2016 01:07 - CONCLUSION: Mild dilation of the distal small bowel loops with a few air-fluid levels. There is also some mild wall thickening of the distal small bowel loops. Moderate amount of stool in the colon. Findings suggest ileus, however an early small bowel obstruction can't be excluded. Recommend serial films. Jose Manuel Patterson MD Chest X-Ray 09/29/16 2210 Signed Impressions: Service Date/Time: Thursday, September 29, 2016 22:10 - CONCLUSION: Mild perihilar infiltrates. Luis E Malik MD (Javier Condon MD R3) Septic Shock Reassessment Heart: Regular rate and rhythm Lungs: Clear Skin: Warm Capillary Refill: <2 seconds (Javier Condon MD R3) Assessment and Plan Assessment and Plan 46 year old male presents with fever, bloating, poor appetite, nausea, vomiting , constipation, with CT scan evidence of a developing ileus. Code Status FULL CODE Discussed Condition With Discussed with Dr. Lamas (Javier Condon MD R3) Attending Attestation The patient has been seen and examined. The chart and all resident notes have been reviewed. I agree that inpatient care is appropriate and that a two midnight stay is expected for the reasons documented in the resident history and physical. I have discussed this with the resident and certify the resident s order for inpatient admission. Patient seen and examined. Case reviewed and discussed Please refer to resident H&P for further details regarding HPI, ROS, PMH, SurgHx , FH and SocHx In summary, patient is a 46yoM with a history of paranoid schizophrenia presenting with several days of vomiting and fever. Patient reports his fiance who he lives with had some GI symptoms similar to his , but these resolved. His started a few days later, and he came to the hospital when he wasn't getting better He is seen in his hospital room, reporting he is feeling better than on admission. He reports he had a watery BM the night of admission GENERAL: AAM resting in bed, tired appearing. Awake and alert. +chills SKIN: Warm and dry. NO rashes. HEAD: Normocephalic. AT EYES: No scleral icterus. No injection or drainage. ENT: OP clear. NGT in place. NECK: Supple, trachea midline. No JVD or lymphadenopathy. CARDIOVASCULAR: Tachycardic rate and reg rhythm without murmurs, gallops, or rubs. RESPIRATORY: Breath sounds equal bilaterally. No accessory muscle use. GASTROINTESTINAL: Abdomen soft, non-tender, nondistended. Protuberant- patient states his baseline. Hypoactive BS. Nontender. No rebound. MUSCULOSKELETAL: No cyanosis, or edema. No calf tenderness BACK: Nontender without obvious deformity. No CVA tenderness. NEURO: Awake and alert. Normal speech. MAEW. CN grossly intact. A/P: 46yoM admitted with: Sepsis due to CAP, check flu MARCUS Hyperkalemia Thrombocytopenia Ileus Vomiting Paranoid schizophrenia Blood cultures Urine Flu Stool studies GI consult Empiric antibiotics Legionella, strep antigens neg Psych consult for recs on psych meds IVF Trend cbc, lactic acid NGT to suction Serial AXR Heparin for DVT proph Case reviewed and discussed Agree with plan of care as discussed with me and documented in the resident note. (Gabriela Jaime MD) Problem List: (1) Community acquired pneumonia Status: Acute Plan: Fever up to 102.6, chest x-ray showing mild perihilar infiltrates. No coughing or congestion, lungs sound clear on exam. - Given no clear source of infection, will treat empirically for community- acquired pneumonia given the perihilar infiltrates. - Start ceftriaxone and azithromycin for coverage of community acquired/ atypical pneumonia. - Check urinary legionella and pneumococcal, especially given GI symptoms and atypical picture. (2) Fever Status: Acute Plan: Fever up to 102.6. Had tachycardia up to 129 on admission, responsive to IVF. WBC 8.6 with bandemia of 28. Urinalysis negative for infection. Chest x- ray with zulma-hilar infiltrates, possibly a developing pneumonia. However, no coughing or congestion present. Has abdominal pain and bloating, but CT scan showing only ileus without obvious obstruction. Abdominal exam fairly benign besides mild tenderness to palpation. Lactic acid 2.1, repeat 1.5. Maintaining blood pressures. - Giving azithromycin and Rocephin to cover atypical/community-acquired pneumonia - IVF resuscitation as needed. - Blood cultures pending - No skin/soft-tissue infections apparent - Mild headache but no neck stiffness or neurological signs (3) Ileus Status: Acute Plan: Ileus evident on CT scan with a history of chronic constipation. On antipsychotic medications with anticholinergic properties. Not on any opiates at home. No history of abdominal surgeries reported. - Low threshold for NG tube for decompression - Clear liquid diet, advance as tolerated - Monitor electrolytes - Check A1C and TSH (4) Acute kidney injury Status: Acute Plan: BUN 9, creatinine 1.55, GFR 59. Baseline creatinine is in normal range. Unclear etiology although clinically dehydrated. BUN/Creatinine ratio is in the intrinsic injury range. - Check urine eosinophils - Avoid nephrotoxic agents - Give IVF for resuscitation - Avoid nephrotoxic agents, renally dose medications - Avoid IV contrast if possible - Monitor intake/output - Renal ultrasound if not improving - Renal consult if not improving (5) Constipation Status: Chronic Plan: Chronic constipation in the setting of acute ileus. - Zulma-colace 2 tabs bid - Monitor stool output (6) Paranoid schizophrenia Status: Chronic Plan: - Continue home medications: - [place] 300 mg qHS - Clozapine 300 mg daily - Depakote 1000 mg daily (7) Nutrition, metabolism, and development symptoms Status: Acute Plan: - IVF NS at maintenance, increase as needed to keep well hydrated - Mild hyperkalemia, repeat BMP in the morning. - Sodium borderline low, receiving normal saline at maintenance - Acute kidney injury present, monitor renal function and avoid nephrotoxic agents - Clear liquid diet for ileus, advance as tolerated (8) No contraindication to deep vein thrombosis (DVT) prophylaxis Status: Acute Plan: - Heparin 5000 units tid (Javier Condon MD R3) Physician Certification 2 Midnight Certification Type: Admission for Inpatient Services Order for Inpatient Services The services are ordered in accordance with Medicare regulations or non- Medicare payer requirements, as applicable. In the case of services not specified as inpatient-only, they are appropriately provided as inpatient services in accordance with the 2-midnight benchmark. Estimated LOS (days): 3 days is the estimated time the patient will need to remain in the hospital, assuming treatment plan goals are met and no additional complications. Post-Hospital Plan: Home (Javier Condon MD R3) Problem Qualifiers (1) Community acquired pneumonia: Qualified Code: J18.9 - Community acquired pneumonia, unspecified laterality Javier Condon MD R3 Sep 30, 2016 03:59 Gabriela Jaime MD Sep 30, 2016 22:21
[2016-09-30] MEDS: HEPARIN SODIUM - SQ 10,000 UNITS/ML VIAL SQ SCH ×3 (06:00→21:33)
--- NOTE | 2016-09-30 07:38 | EKG ---
Date Performed: 09/29/2016 Time Performed: 22:27:33 PTAGE: 46 years EKG: SINUS TACHYCARDIA BORDERLINE LEFT AXIS DEVIATION NONSPECIFIC T-WAVE ABNORMALITY [facility]NORM[facility] ECG Compared to the PREVIOUS TRACING Rate has increased and nonspecific T-wave changes are present. PREVIOUS TRACIN06/28/2007 11.06 DOCTOR: Alex Lopez Interpretating Date/Time 09/30/2016 07:37:01
--- NOTE | 2016-09-30 08:47 | HHI.FPPN ---
Subjective Remarks Patient very poor historian secondary to psychiatric illness. She reports a headache, located over the frontal lobes. Dull and achy in nature. Persistent. Reports fevers/chills/uncontrollable shaking. Uncertain if this is new for him. Abdominal pain, located over the umbilicus. He has been drinking a lot of water, and reports that this is making his stomach pain worse. Febrile this morning to 101.6. Tachycardia to 101. (Patrice Ponce MD, R3) Objective Vitals Vital Signs Date Time Temp Pulse Resp B/P Pulse Ox O2 Delivery O2 Flow Rate FiO2 09/30/16 08:00 101.6 101 18 123/88 97 09/30/16 05:33 99.6 115 20 130/60 97 09/30/16 03:59 98.7 101 20 115/62 97 09/30/16 00:18 98.9 09/30/16 00:15 18 09/29/16 23:20 104 18 98 Room Air 09/29/16 22:46 110 18 130/65 97 Room Air 09/29/16 22:43 18 Room Air 09/29/16 19:34 101.6 129 16 117/69 97 Room Air I/O 09/29/16 09/29/16 09/29/16 09/30/16 09/30/16 09/30/16 06:59 14:59 22:59 06:59 14:59 22:59 Intake Total 500 ml 720 ml Output Total 1 ml 200 ml Balance 499 ml 520 ml Intake Oral 240 ml 720 ml IV Total 260 ml Output Urine Total 200 ml Stool Total 1 ml # Voids 1 (Patriec Ponce MD, R3) Result Diagram: 09/29/16 2315 09/29/165 Objective Remarks Last 72 hours Impressions Abdomen/Pelvis CT 09/30/16 0016 Signed Impressions: Service Date/Time: Friday, September 30, 2016 01:07 - CONCLUSION: Mild dilation of the distal small bowel loops with a few air-fluid levels. There is also some mild wall thickening of the distal small bowel loops. Moderate amount of stool in the colon. Findings suggest ileus, however an early small bowel obstruction can't be excluded. Recommend serial films. Jose Manuel Patterson MD Chest X-Ray 09/29/162209 Signed Impressions: Service Date/Time: Thursday, September 29, 2016 22:10 - CONCLUSION: Mild perihilar infiltrates. Luis E Malik MD GENERAL: Diffuse tremors on exam, including his lips, chest, and extremities. SKIN: Cool and clammy. EYES: Equal round and reactive. Some mild scleral icterus. HENT: Normocephalic. Atraumatic. MMM. NECK: No visible JVD or lymphadenopathy. No carotid bruits. CARDIOVASCULAR: Regular rate and rhythm, tachycardia. RESPIRATORY: He to auscultation bilaterally. GASTROINTESTINAL: Abdomen distended, tympanic to percussion. No fluid wave shift. Bowel sounds hypoactive, with occasional high-pitched BS. MUSCULOSKELETAL: Strength grossly WNL. BACK: Without obvious deformity. NEURO/PSYCH: Afocal. Awake, alert, and oriented x3. (Patrice Ponce MD, R3) A/P Assessment and Plan 46 year old male presents with fever, bloating, poor appetite, nausea, vomiting , constipation, with CT scan evidence of a developing ileus. (Patrice Ponce MD, R3) Attending Attestation patient seen and examined Case reviewed and discussed Agree with plan of care as discussed with me and documented in the resident note. (Gabriela Jaime MD) Problem List: (1) Community acquired pneumonia Status: Acute Plan: Fever up to 102.6, chest x-ray showing mild perihilar infiltrates. Persistent sepsis despite IV fluids, and antibiotics. Febrile to 101.6 this morning. Tachycardia to 115 bpm. Maintaining blood pressure. Repeat lab work including CBC with differential, CMP, as well as lactic acid. Will trend. - Given no clear source of infection, will treat empirically for community- acquired pneumonia given the perihilar infiltrates. We will also treat for intra-abdominal infection with Flagyl 500 mg every 6 hours IV. No rigidity, rebound, or guarding on exam. If worsening abdominal exam, persistent fevers, increasing lactic acid, would consult surgery. -Urine Legionella and pneumococcal antigens pending. Antibiotics (09/29 --- ) Azithromycin 250 mg PO (09/29 -- ) Ceftriaxone 1 g q 24 iv (09/30 --- ) Flagyl 500 mg q 6 iv (2) Fever Status: Acute Plan: Fever up to 102.6. Had tachycardia up to 129 on admission, responsive to IVF. WBC 8.6 with bandemia of 28. Urinalysis negative for infection. Chest x- ray with zulma-hilar infiltrates, possibly a developing pneumonia. However, no coughing or congestion present. Has abdominal pain and bloating, but CT scan showing only ileus without obvious obstruction. Abdominal exam fairly benign besides mild tenderness to palpation. Lactic acid 2.1, repeat 1.5. - Antibiotics as above. - IVF resuscitation as needed. - Blood cultures pending - No skin/soft-tissue infections apparent - Mild headache but no neck stiffness or neurological signs (3) Ileus Status: Acute Plan: Ileus evident on CT scan with a history of chronic constipation. On antipsychotic medications with anticholinergic properties. Not on any opiates at home. No history of abdominal surgeries reported. - We will decompress the bowel with an NG tube. - Nothing by mouth 24 hours. - Monitor electrolytes - including potassium which was 5.3 on admission. We'll repeat this afternoon. - Check A1C and TSH - Surgery/GI consult if not improving over the next 24 hours. (4) Acute kidney injury Status: Acute Plan: BUN 9, creatinine 1.55, GFR 59. Baseline creatinine is in normal range. Unclear etiology although clinically dehydrated. BUN/Creatinine ratio is in the intrinsic injury range. - Check urine eosinophils - Avoid nephrotoxic agents - Give IVF for resuscitation - Avoid nephrotoxic agents, renally dose medications - Avoid IV contrast if possible - Monitor intake/output - Renal ultrasound if not improving - Renal consult if not improving (5) Constipation Status: Chronic Plan: Chronic constipation in the setting of acute ileus. - Zulma-colace 2 tabs bid - Monitor stool output (6) Paranoid schizophrenia Status: Chronic Plan: - Continue home medications: - [place] 300 mg qHS - Clozapine 300 mg daily - Depakote 1000 mg daily -Levels within the therapeutic range for both lithium and Depakote. (7) Nutrition, metabolism, and development symptoms Status: Acute Plan: - IVF NS at maintenance. We'll give a 1 L bolus, given persistent tachycardia and fevers. - Mild hyperkalemia, repeat BMP this afternoon. - Sodium borderline low, receiving normal saline at maintenance - Acute kidney injury present, monitor renal function and avoid nephrotoxic agents (8) No contraindication to deep vein thrombosis (DVT) prophylaxis Status: Acute Plan: - Heparin 5000 units tid (Patrice Ponce MD, R3) Problem Qualifiers (1) Community acquired pneumonia: Qualified Code: J18.9 - Community acquired pneumonia, unspecified laterality Patrice Ponce MD, R3 Sep 30, 2016 08:47 Gabriela Jaime MD Sep 30, 2016 22:21
[2016-09-30] MEDS: DOCUSATE SODIUM 50 MG/SENNA 8.6 MG TAB PO SCH ×2 (09:00→21:00)
[2016-09-30] MEDS: cloZAPine 100 MG TAB PO SCH (09:42)
[2016-09-30] MEDS: metroNIDAZOLE 500 MG INJ 100 ML IV SCH ×3 (09:42→21:26)
[2016-09-30] MEDS: ACETAMINOPHEN 325 MG TAB PO PRN ×2 (09:43→13:27)
[2016-09-30] MEDS: PANTOPRAZOLE SOD 40 MG DELAYED RELEASE TAB PO SCH (09:43)
[2016-09-30] MEDS: DIVALPROEX SODIUM E.R. 500 MG TAB PO SCH (09:43)
[2016-09-30] MEDS: SODIUM CHLORIDE 0.9% FLUSH 10 ML FLUSH IV FLUSH SCH ×2 (09:44→21:00)
[2016-09-30 11:30] LABS: HEMOGLOBIN A1a 1.1 %; HEMOGLOBIN A1b 0.9 %; HEMOGLOBIN LA1C 1.7 %; HEMOGLOBIN P3 3.3 %
--- NOTE | 2016-09-30 13:15 | RADRPT ---
EXAM DATE/TIME: 09/30/2016 11:59 [facility] COMPARISON: CT ABDOMEN & PELVIS W CONTRAST, September 30, 2016, 1:07. INDICATIONS : Ng tube placement. MEDICAL HISTORY : Venous insufficiency. Hypertension. Gastroesophageal reflux disease. SURGICAL HISTORY : None. ENCOUNTER: Subsequent ACUITY: 2 days PAIN SCORE: 0/10 LOCATION: Bilateral chest Abdomen. FINDINGS: Examination of the abdomen demonstrates a tear within small bowel. The small bowel appears borderline dilated. There is an NG tube in place with the tip in the mid esophagus. NG tube should be advanced. No free air seen. The lung bases are clear. CONCLUSION: Borderline distended small bowel. Some degree of ileus or mild obstruction cannot be excluded. NG tub e tip is in the mid esophagus. Luis E Woods MD on September 30, 2016 at 13:09 Board Certified Radiologist. This report was verified electronically.
[2016-09-30 13:32] LABS: AUTOMATED NEUTROPHIL # 4.1 TH/MM3 (1.8-7.7); BASOPHIL % 0.4 % (0.0-2.0); EOSINOPHIL % 0.1 % (0.0-4.0); HEMATOCRIT 34.5 % (39.0-51.0); HEMO FLAGS DIFF FINAL; LYMPH % 17.8 % (9.0-44.0); LYMPHOCYTE # 1.2 TH/MM3 (1.0-4.8); MEAN CELL VOLUME 87.5 FL (80.0-100.0); MEAN CORPUSCULAR HEMOGLOBIN 29.4 PG (27.0-34.0); MEAN CORPUSCULAR HGB CONC 33.6 % (32.0-36.0); MONO % 20.6 % (0.0-8.0); NEUT % 61.1 % (16.0-70.0); PLATELET COUNT 121 TH/MM3 (150-450); RED BLOOD COUNT 3.94 MIL/MM3 (4.50-5.90); RED CELL DISTRIBUTION WIDTH 14.6 % (11.6-17.2); WHITE BLOOD COUNT 6.7 TH/MM3 (4.0-11.0)
[2016-09-30 13:51] LABS: ALKALINE PHOSPHATASE 36 U/L (45-117); ALT (GPT) 9 U/L (12-78); ANION GAP 5 MEQ/L (5-15); AST (GOT) 9 U/L (15-37); BICARBONATE 24.2 MEQ/L (21.0-32.0); BLOOD UREA NITROGEN 9 MG/DL (7-18); CHLORIDE 106 MEQ/L (98-107); GLOMERULAR FILTRATION RATE 68 ML/MIN (>89); POTASSIUM 3.8 MEQ/L (3.5-5.1); SODIUM (NA) 135 MEQ/L (136-145); TOTAL BILIRUBIN ADULT 0.4 MG/DL (0.2-1.0)
--- NOTE | 2016-09-30 15:26 | RADRPT ---
EXAM DATE/TIME: 09/30/2016 14:06 [facility] COMPARISON: No previous studies available for comparison. INDICATIONS : Ileus; NG tube reposition. MEDICAL HISTORY : Venous insufficiency. Hypertension. Gastroesophageal reflux disease. SURGICAL HISTORY : None. ENCOUNTER: Subsequent ACUITY: 1 day PAIN SCORE: 5/10 LOCATION: Bilateral abdomen. FINDINGS: Supine and upright views of the abdomen were performed. There is an NG tube with tip in the upper st omach. There is mildly prominent air-filled small bowel. No air fluid levels are seen. No abnormal masses, calcifications, or organomegaly is seen. The visualized lower lungs are clear. No evidence of free intraperitoneal gas. The osseous structures are unremarkable. CONCLUSION: Nonspecific abdominal series with mildly prominent air-filled small bowel. The NG tube tip is in the upper stomach. Luis E Woods MD on September 30, 2016 at 15:22 Board Certified Radiologist. This report was verified electronically.
[2016-09-30] MEDS: ACETAMINOPHEN 1000 MG/100 ML VIAL IV SCH (17:52)
[2016-09-30] MEDS: cefTRIAXone INJ 1,000 MG in SODIUM CHLORIDE 0.9% INJ 100 ML IV SCH (21:26)
[2016-09-30] MEDS: CIPROFLOXACIN 400 MG PREMIX 200 ML IV SCH (21:27)
[2016-09-30] MEDS: LITHIUM CARBONATE 300 MG CAP PO SCH (21:31)
[2016-09-30] MEDS: AZITHROMYCIN 250 MG TAB PO SCH (21:32)
[2016-10-01] VITALS: BP 121/63; PULSE 106; RESP 20; TEMP 98.4; O2SAT 96
[2016-10-01] MEDS: ACETAMINOPHEN 1000 MG/100 ML VIAL IV SCH ×4 (00:39→16:02)
[2016-10-01 02:49] LABS: C. DIFF EPI 027 PRESUMPTIVE NEGATIVE (NEGATIVE)
[2016-10-01 04:00] VITALS: BP 148/82; PULSE 109; RESP 20; TEMP 99.4; O2SAT 97
[2016-10-01] MEDS: metroNIDAZOLE 500 MG INJ 100 ML IV SCH ×3 (04:37→13:33)
[2016-10-01] MEDS: SODIUM CHLOR 0.9% 1000 ML INJ 1,000 ML IV SCH ×3 (04:50→16:40)
[2016-10-01] MEDS: HEPARIN SODIUM - SQ 10,000 UNITS/ML VIAL SQ SCH ×3 (04:50→21:29)
[2016-10-01 06:39] LABS: AUTOMATED NEUTROPHIL # 4.3 TH/MM3 (1.8-7.7); BASOPHIL % 0.4 % (0.0-2.0); EOSINOPHIL # 0.1 TH/MM3 (0-0.4); EOSINOPHIL % 0.7 % (0.0-4.0); HEMATOCRIT 32.9 % (39.0-51.0); HEMO FLAGS DIFF FINAL; LYMPH % 19.3 % (9.0-44.0); LYMPHOCYTE # 1.5 TH/MM3 (1.0-4.8); MEAN CELL VOLUME 87.4 FL (80.0-100.0); MEAN CORPUSCULAR HEMOGLOBIN 29.6 PG (27.0-34.0); MEAN CORPUSCULAR HGB CONC 33.9 % (32.0-36.0); MONO % 23.9 % (0.0-8.0); NEUT % 55.7 % (16.0-70.0); PLATELET COUNT 113 TH/MM3 (150-450); RED BLOOD COUNT 3.76 MIL/MM3 (4.50-5.90); RED CELL DISTRIBUTION WIDTH 15.2 % (11.6-17.2); WHITE BLOOD COUNT 7.7 TH/MM3 (4.0-11.0)
[2016-10-01 07:01] LABS: BICARBONATE 22.9 MEQ/L (21.0-32.0); POTASSIUM 3.7 MEQ/L (3.5-5.1)
--- NOTE | 2016-10-01 07:44 | HHI.FPPN ---
Subjective Remarks Patient improving. Headaches resolved. Abd distension less. Not nauseous. 3 episodes of diarrhea and flatus. Denies fevers. (Patrice Ponce MD, R3) Objective Vitals Vital Signs Date Time Temp Pulse Resp B/P Pulse Ox O2 Delivery O2 Flow Rate FiO2 10/01/16 04:00 99.4 109 20 148/82 97 10/01/16 00:00 98.4 106 20 121/63 96 09/30/16 20:00 100.0 103 18 107/61 96 09/30/16 17:30 102.1 108 18 111/58 95 09/30/16 13:38 99.7 101 09/30/16 13:15 102.1 106 24 134/58 95 09/30/16 08:00 101.6 101 18 123/88 97 I/O 09/30/16 09/30/16 09/30/16 10/01/16 10/01/16 10/01/16 07:00 15:00 23:00 07:00 15:00 23:00 Intake Total 500 ml 1440 ml 0 ml Output Total 1 ml 200 ml 100 ml 650 ml Balance 499 ml 1240 ml -100 ml -650 ml Intake Oral 240 ml 1440 ml 0 ml IV Total 260 ml Output Urine Total 200 ml 100 ml 650 ml Stool Total 1 ml # Voids 1 4 # Bowel Movements 1 4 (Patrice Ponce MD, R3) Result Diagram: 10/01/16 0544 10/01/16 0544 Objective Remarks Last 72 hours Impressions Abdomen/Pelvis CT 09/30/16 0016 Signed Impressions: Service Date/Time: Friday, September 30, 2016 01:07 - CONCLUSION: Mild dilation of the distal small bowel loops with a few air-fluid levels. There is also some mild wall thickening of the distal small bowel loops. Moderate amount of stool in the colon. Findings suggest ileus, however an early small bowel obstruction can't be excluded. Recommend serial films. Jose Manuel Patterson MD Chest X-Ray 09/29/16 4060 Signed Impressions: Service Date/Time: Thursday, September 29, 2016 22:10 - CONCLUSION: Mild perihilar infiltrates. Luis E Malik MD GENERAL: Diffuse tremors on exam, including his lips, chest, and extremities. SKIN: Cool and clammy. EYES: Equal round and reactive. Some mild scleral icterus. HENT: Normocephalic. Atraumatic. MMM. NECK: No visible JVD or lymphadenopathy. No carotid bruits. CARDIOVASCULAR: Regular rate and rhythm, tachycardia. RESPIRATORY: He to auscultation bilaterally. GASTROINTESTINAL: Abdomen distended, tympanic to percussion. No fluid wave shift. Bowel sounds hypoactive, with occasional high-pitched BS. MUSCULOSKELETAL: Strength grossly WNL. BACK: Without obvious deformity. NEURO/PSYCH: Afocal. Awake, alert, and oriented x3. (Patrice Ponce MD, R3) A/P Assessment and Plan 46 year old male presents with fever, bloating, poor appetite, nausea, vomiting , constipation, with CT scan evidence of a developing ileus. (Patrice Ponce MD, R3) Attending Attestation Patient seen and examined. Case reviewed and discussed Agree with plan of care as discussed with me and documented in the resident note. Patient improved. Patient with mother and fiance at the bedside Discussed +campylobacter temps improving diarrhea improving, 3 episodes today (Gabriela Jaime MD) Problem List: (1) Community acquired pneumonia Status: Acute Plan: Repeat CXR to assess for CAP. D/c Rocephin if clear. (2) Fever Status: Acute Plan: Sepsis resolved. Afebrile. Stool studies ++ Campylobacter. Treat with Azithromycin 250 mg PO daily started on 09/29 -- increase to 500 mg daily. Antibiotics (09/29 --- ) Azithromycin 250 mg PO (09/29 -- ) Ceftriaxone 1 g q 24 iv DISCONTINUED (09/30 --- ) Flagyl 500 mg q 6 iv DISCONTINUED (09/30 -- ) Cipro DISCONTINUED (3) Ileus Status: Acute Plan: Ileus evident on CT scan with a history of chronic constipation. On antipsychotic medications with anticholinergic properties. Not on any opiates at home. No history of abdominal surgeries reported. - We will decompress the bowel with an NG tube. Clamp tube today 10/01, PO diet tomorrow 10/02 if improving. - Nothing by mouth 24 hours. - Monitor electrolytes. - Surgery/GI consult if not improving over the next 24 hours. (4) Acute kidney injury Status: Acute Plan: Resolved with IVF. (5) Constipation Status: Chronic Plan: Chronic constipation in the setting of acute ileus. - Zulma-colace 2 tabs bid - Monitor stool output (6) Paranoid schizophrenia Status: Chronic Plan: - Continue home medications: - [place] 300 mg qHS - Clozapine 300 mg daily - Depakote 1000 mg daily -Levels within the therapeutic range for both lithium and Depakote. (7) Nutrition, metabolism, and development symptoms Status: Acute Plan: - IVF NS at maintenance. - Mild hyperkalemia, repeat BMP resolved. (8) No contraindication to deep vein thrombosis (DVT) prophylaxis Status: Acute Plan: - Heparin 5000 units tid (Patrice Ponce MD, R3) Problem Qualifiers (1) Community acquired pneumonia: Qualified Code: J18.9 - Community acquired pneumonia, unspecified laterality Patrice Ponce MD, R3 Oct 01, 2016 07:44 Gabriela Jaime MD Oct 01, 2016 21:44 - Sodium borderline low, receiving normal saline at maintenance - Acute kidney injury present, monitor renal function and avoid nephrotoxic agents (8) No contraindication to deep vein thrombosis (DVT) prophylaxis Status: Acute Plan: - Heparin 5000 units tid Problem Qualifiers (1) Community acquired pneumonia: Qualified Code: J18.9 - Community acquired pneumonia, unspecified laterality Patrice Ponce MD, R3 Oct 01, 2016 07:44
[2016-10-01] MEDS: CIPROFLOXACIN 400 MG PREMIX 200 ML IV SCH (07:55)
[2016-10-01] MEDS: PANTOPRAZOLE SOD 40 MG DELAYED RELEASE TAB PO SCH (07:56)
[2016-10-01] MEDS: AZITHROMYCIN 250 MG TAB PO SCH (07:56)
[2016-10-01] MEDS: DIVALPROEX SODIUM E.R. 500 MG TAB PO SCH (07:56)
[2016-10-01] MEDS: cloZAPine 100 MG TAB PO SCH (08:00)
[2016-10-01] MEDS: SODIUM CHLORIDE 0.9% FLUSH 10 ML FLUSH IV FLUSH SCH ×2 (08:01→19:51)
[2016-10-01] MEDS: DOCUSATE SODIUM 50 MG/SENNA 8.6 MG TAB PO SCH ×2 (08:01→19:51)
[2016-10-01 08:43] VITALS: BP 111/63; PULSE 88; RESP 21; TEMP 98; O2SAT 95
[2016-10-01 12:16] VITALS: BP 119/73; PULSE 98; RESP 21; TEMP 98.5; O2SAT 99
--- NOTE | 2016-10-01 15:38 | RADRPT ---
EXAM DATE/TIME: 10/01/2016 15:09 [facility] COMPARISON: CHEST SINGLE AP, September 29, 2016, 22:10. INDICATIONS : Congestion MEDICAL HISTORY : Hypertension. Gastroesophageal reflux disease. SURGICAL HISTORY : None. ENCOUNTER: Initial ACUITY: 3 days PAIN SCORE: Non-responsive. LOCATION: Bilateral chest FINDINGS: Mild elevation of the right hemidiaphragm minimal parenchymal changes right base. Linear atelectasis is present in the left base. The heart and pulmonary vascularity are normal. The portion of the bony skeleton visualized is unremarkable. CONCLUSION: Elevation of the right hemidiaphragm with minimal parenchymal changes right base Alexander Ibarra MD FACR on October 01, 2016 at 15:29 Board Certified Radiologist. This report was verified electronically.
[2016-10-01] MEDS ORDERED: AZITHROMYCIN 250 MG TAB PO ONE (15:45)
--- NOTE | 2016-10-01 15:49 | RADRPT ---
EXAM DATE/TIME: 10/01/2016 15:10 [facility] COMPARISON: ABDOMEN FLAT & UPRIGHT, September 30, 2016, 14:06. INDICATIONS : Ileus MEDICAL HISTORY : Gastroesophageal reflux disease. SURGICAL HISTORY : None. ENCOUNTER: Initial ACUITY: 2 days PAIN SCORE: 0/10 LOCATION: Bilateral abdomen FINDINGS: AP erect and supine views of the abdomen were obtained and now demonstrates a nasogastric tube with t he tip projected over the distal esophagus. There are multiple loops of borderline dilated air-contai lida small bowel in the central and left abdomen with multiple air-fluid levels on the erect film. Th nolvia appear slightly increased in size and number. There is no evidence of free air or mass effect. CONCLUSION: 1. The nasogastric tube tip is now projected over the distal esophagus and could be advanced approxim ately 10 cm. 2. Mild interval worsening of abdominal bowel gas pattern. Javier Vega MD on October 01, 2016 at 15:45 Board Certified Radiologist. This report was verified electronically.
[2016-10-01 16:28] VITALS: BP 132/73; PULSE 106; RESP 22; TEMP 97.5; O2SAT 96
--- NOTE | 2016-10-01 18:04 | RADRPT ---
EXAM DATE/TIME: 10/01/2016 16:54 [facility] COMPARISON: ABDOMEN FLAT & UPRIGHT, October 01, 2016, 15:10. ABDOMEN SINGLE VIEW, September 30, 2016, 11:59. INDICATIONS : NG tube placement. MEDICAL HISTORY : Gastroesophageal reflux disease. Hypertension Ileus. SURGICAL HISTORY : None. ENCOUNTER: Subsequent ACUITY: 1 day PAIN SCORE: 4/10 LOCATION: Abdomen. FINDINGS: A single AP supine portable view of the abdomen was obtained. The lower abdomen and pelvis were cut o ff the exam. The nasogastric tube remains in place with the tip projected over the distal esophagus. There are multiple loops of borderline dilated air-containing small bowel again noted in the abdomen. CONCLUSION: 1. The nasogastric tube remains in place with the tip projected over the distal esophagus. 2. The abnormal bowel gas pattern remains. Javier Vega MD on October 01, 2016 at 18:01 Board Certified Radiologist. This report was verified electronically.
[2016-10-01] MEDS: cefTRIAXone INJ 1,000 MG in SODIUM CHLORIDE 0.9% INJ 100 ML IV SCH (19:50)
[2016-10-01] MEDS: LITHIUM CARBONATE 300 MG CAP PO SCH (19:51)
[2016-10-01 20:00] VITALS: BP 122/71; PULSE 100; RESP 20; TEMP 99.8; O2SAT 96
--- NOTE | 2016-10-01 22:52 | RADRPT ---
EXAM DATE/TIME: 10/01/2016 22:27 [facility] COMPARISON: ABDOMEN SINGLE VIEW, October 01, 2016, 16:54. INDICATIONS : NG tube placement. MEDICAL HISTORY : Gastroesophageal reflux disease. Hypertension. Ileus. SURGICAL HISTORY : None. ENCOUNTER: Subsequent ACUITY: 2 days PAIN SCORE: 6/10 LOCATION: Abdomen. FINDINGS: Examination of the abdomen demonstrates dilated small bowel in the mid abdomen. Colonic dilatation is not seen. Free air is not seen. The NG tube tip is in the distal esophagus. a normal bowel gas patte rn. No free air is identified. No organomegaly is evident. Osseous structures are intact. CONCLUSION: 1. Persistently dilated small bowel. 2. NG tube with tip in the distal esophagus. Luis E Woods MD on October 01, 2016 at 22:49 Board Certified Radiologist. This report was verified electronically.
[2016-10-02] VITALS: BP 121/65; PULSE 102; RESP 20; TEMP 99.9; O2SAT 96
[2016-10-02 04:00] VITALS: BP 122/75; PULSE 99; RESP 18; TEMP 98.5; O2SAT 96
[2016-10-02] MEDS: ACETAMINOPHEN 1000 MG/100 ML VIAL IV SCH ×2 (05:42)
[2016-10-02] MEDS: HEPARIN SODIUM - SQ 10,000 UNITS/ML VIAL SQ SCH ×3 (05:42→22:00)
[2016-10-02] MEDS: SODIUM CHLOR 0.9% 1000 ML INJ 1,000 ML IV SCH ×2 (05:42→18:52)
[2016-10-02 08:00] VITALS: BP 125/73; PULSE 98; RESP 16; TEMP 98.3; O2SAT 98
--- NOTE | 2016-10-02 08:21 | HHI.FPPN ---
Subjective Remarks Patient feeling well today. Abdominal pain improving. Reports passing gas and having 2 BM's that were semi-formed yesterday. No bloody. He reports vivid dreams last night about going to space with [employer]. Currently denies hallucinations. He is requesting to get out of bed and ambulate. Also asking when he can go home. (Patrice Ponce MD, R3) Objective Vitals Vital Signs Date Time Temp Pulse Resp B/P Pulse Ox O2 Delivery O2 Flow Rate FiO2 10/02/16 04:00 98.5 99 18 122/75 96 10/02/16 00:00 99.9 102 20 121/65 96 10/01/16 20:00 99.8 100 20 122/71 96 10/01/16 16:28 97.5 106 22 132/73 96 10/01/16 12:16 98.5 98 21 119/73 99 10/01/16 08:43 98.0 88 21 111/63 95 I/O 10/01/16 10/01/16 10/01/16 10/02/16 10/02/16 10/02/16 07:00 15:00 23:00 07:00 15:00 23:00 Intake Total 0 ml 0 ml 0 ml Output Total 650 ml 1125 ml 600 ml 0 ml Balance -650 ml -1125 ml -600 ml 0 ml Intake Oral 0 ml 0 ml 0 ml Output Urine Total 650 ml 1125 ml 600 ml 0 ml # Bowel Movements 4 1 (Patrice Ponce MD, R3) Result Diagram: 10/01/16 0544 10/01/16 0544 Objective Remarks Last 72 hours Impressions Chest X-Ray 10/01/16 0000 Signed Impressions: Service Date/Time: Saturday, October 01, 2016 15:09 - CONCLUSION: Elevation of the right hemidiaphragm with minimal parenchymal changes right base Alexander Ibarra MD FACR Abdomen X-Ray 10/01/16 0000 Signed Impressions: Service Date/Time: Saturday, October 01, 2016 22:27 - CONCLUSION: 1. Persistently dilated small bowel. 2. NG tube with tip in the distal esophagus. Luis E Woods MD Abdomen X-Ray 10/01/16 0000 Signed Impressions: Service Date/Time: Saturday, October 01, 2016 16:54 - CONCLUSION: 1. The nasogastric tube remains in place with the tip projected over the distal esophagus. 2. The abnormal bowel gas pattern remains. Javier Vega MD Abdomen X-Ray 10/01/16 0000 Signed Impressions: Service Date/Time: Saturday, October 01, 2016 15:10 - CONCLUSION: 1. The nasogastric tube tip is now projected over the distal esophagus and could be advanced approximately 10 cm. 2. Mild interval worsening of abdominal bowel gas pattern. Javier Vega MD Abdomen X-Ray 09/30/16 1400 Signed Impressions: Service Date/Time: Friday, September 30, 2016 14:06 - CONCLUSION: Nonspecific abdominal series with mildly prominent air-filled small bowel. The NG tube tip is in the upper stomach. Luis E Woods MD Abdomen/Pelvis CT 09/30/16 0016 Signed Impressions: Service Date/Time: Friday, September 30, 2016 01:07 - CONCLUSION: Mild dilation of the distal small bowel loops with a few air-fluid levels. There is also some mild wall thickening of the distal small bowel loops. Moderate amount of stool in the colon. Findings suggest ileus, however an early small bowel obstruction can't be excluded. Recommend serial films. Jose Manuel Patterson MD Abdomen X-Ray 09/30/16 0000 Signed Impressions: Service Date/Time: Friday, September 30, 2016 11:59 - CONCLUSION: Borderline distended small bowel. Some degree of ileus or mild obstruction cannot be excluded. NG tube tip is in the mid esophagus. Luis E Woods MD Chest X-Ray 09/29/16 2210 Signed Impressions: Service Date/Time: Thursday, September 29, 2016 22:10 - CONCLUSION: Mild perihilar infiltrates. Luis E Malik MD GENERAL: Diffuse tremors on exam, including his lips, chest, and extremities. SKIN: Cool and clammy. EYES: Equal round and reactive. Some mild scleral icterus. HENT: Normocephalic. Atraumatic. MMM. NECK: No visible JVD or lymphadenopathy. No carotid bruits. CARDIOVASCULAR: Regular rate and rhythm, tachycardia. RESPIRATORY: He to auscultation bilaterally. GASTROINTESTINAL: Abdomen distended, tympanic to percussion. No fluid wave shift. Bowel sounds hypoactive, with occasional high-pitched BS. Less distended. MUSCULOSKELETAL: Strength grossly WNL. BACK: Without obvious deformity. NEURO/PSYCH: Afocal. Awake, alert, and oriented x3. (Patrice Ponce MD, R3) A/P Assessment and Plan 46 year old male presents with fever, bloating, poor appetite, nausea, vomiting , constipation, with CT scan evidence of a developing ileus. + Camplyobacter on stool studies. (Patrice Ponce MD, R3) Attending Attestation Patient seen and examined. Case reviewed and discussed with Dr. Ponce Agree with plan of care as discussed with me and documented in the resident note. GI consult, worsening XR (Gabriela Jaime MD) Problem List: (1) Community acquired pneumonia Status: Acute Plan: Repeat CXR to assess for CAP. Minimal parenchymal changes at right base on repeat CXR from 10/01. Persistent elevation of right hemidiaphragm. Lung sounds clear. No cough, SOB, or productive sputum. D/c coverage for CAP (rocephin) and continue azithromycin for abdominal Campylobacter infection. (2) Fever Status: Acute Plan: Sepsis resolved. Afebrile. Stool studies ++ Campylobacter. Treat with Azithromycin 250 mg PO daily started on 09/29 -- increase to 500 mg daily. Antibiotics (09/29 --- ) Azithromycin 250 mg PO (09/29 -- ) Ceftriaxone 1 g q 24 iv DISCONTINUED (09/30 --- ) Flagyl 500 mg q 6 iv DISCONTINUED (09/30 -- ) Cipro DISCONTINUED (3) Ileus Status: Acute Plan: Ileus evident on CT scan with a history of chronic constipation. On antipsychotic medications with anticholinergic properties (in particular Clozapine can cause a paralytic ileus). Not on any opiates at home. No history of abdominal surgeries reported. - We will decompress the bowel with an NG tube. Clamp tube 10/01, PO diet today, 10/02. - Serial abdominal exams. - Clear liquid diet. - Monitor electrolytes. - Surgery/GI consult if not improving. (4) Acute kidney injury Status: Acute Plan: Resolved with IVF. (5) Constipation Status: Chronic Plan: Chronic constipation in the setting of acute ileus. - Zulma-colace 2 tabs bid - Monitor stool output (6) Paranoid schizophrenia Status: Chronic Plan: - Continue home medications: - [place] 300 mg qHS - Clozapine 300 mg daily - Depakote 1000 mg daily -Levels within the therapeutic range for both lithium and Depakote. (7) Nutrition, metabolism, and development symptoms Status: Acute Plan: - Reduce IVF from maintenance to half maintenance (75 ml/hr). - Mild hyperkalemia, repeat BMP resolved. (8) No contraindication to deep vein thrombosis (DVT) prophylaxis Status: Acute Plan: - Heparin 5000 units tid (Patrice Ponce MD, R3) Problem Qualifiers (1) Community acquired pneumonia: Patrice Ponce MD, R3 Oct 02, 2016 08:21 Gabriela Jaime MD Oct 06, 2016 09:50
[2016-10-02] MEDS: DIVALPROEX SODIUM E.R. 500 MG TAB PO SCH (08:34)
[2016-10-02] MEDS: PANTOPRAZOLE SOD 40 MG DELAYED RELEASE TAB PO SCH (08:35)
[2016-10-02] MEDS: cloZAPine 100 MG TAB PO SCH (08:35)
[2016-10-02] MEDS: AZITHROMYCIN 250 MG TAB PO SCH (08:35)
[2016-10-02] MEDS: DOCUSATE SODIUM 50 MG/SENNA 8.6 MG TAB PO SCH ×2 (08:41→20:47)
[2016-10-02] MEDS: SODIUM CHLORIDE 0.9% FLUSH 10 ML FLUSH IV FLUSH SCH ×2 (08:41→20:47)
[2016-10-02 09:53] LABS: AUTOMATED NEUTROPHIL # 4.4 TH/MM3 (1.8-7.7); BASOPHIL % 0.4 % (0.0-2.0); EOSINOPHIL # 0.2 TH/MM3 (0-0.4); HEMATOCRIT 33.8 % (39.0-51.0); HEMO FLAGS DIFF FINAL; LYMPH % 23.7 % (9.0-44.0); LYMPHOCYTE # 1.8 TH/MM3 (1.0-4.8); MEAN CELL VOLUME 88.3 FL (80.0-100.0); MEAN CORPUSCULAR HEMOGLOBIN 28.9 PG (27.0-34.0); MEAN CORPUSCULAR HGB CONC 32.7 % (32.0-36.0); MONO % 16.2 % (0.0-8.0); NEUT % 57.7 % (16.0-70.0); PLATELET COUNT 155 TH/MM3 (150-450); RED BLOOD COUNT 3.82 MIL/MM3 (4.50-5.90); RED CELL DISTRIBUTION WIDTH 15.8 % (11.6-17.2); WHITE BLOOD COUNT 7.6 TH/MM3 (4.0-11.0)
[2016-10-02 10:16] LABS: ANION GAP 8 MEQ/L (5-15); AST (GOT) 7 U/L (15-37); BLOOD UREA NITROGEN 6 MG/DL (7-18); CHLORIDE 112 MEQ/L (98-107); GLOMERULAR FILTRATION RATE 102 ML/MIN (>89); POTASSIUM 3.7 MEQ/L (3.5-5.1); SODIUM (NA) 142 MEQ/L (136-145)
[2016-10-02 10:20] LABS: ALKALINE PHOSPHATASE 39 U/L (45-117); ALT (GPT) 10 U/L (12-78); TOTAL BILIRUBIN ADULT 0.3 MG/DL (0.2-1.0)
[2016-10-02 12:00] VITALS: BP 136/65; PULSE 105; RESP 18; TEMP 97.9; O2SAT 97
[2016-10-02 16:00] VITALS: BP 132/79; PULSE 99; RESP 18; TEMP 98; O2SAT 98
--- NOTE | 2016-10-02 16:00 | PD.CONS ---
HPI History of Present Illness This is a 46 year old male with hx schizoaffective disorder, chronic constipation who presented with fever, vomiting, bloating. Symptoms began Thursday after he ate at a yi restaurant. His stool was pos for campylobacter and he has been on antibiotics. Today he tells me he is feeling bloated still but better than he was, he is tolerating clears with no n/v or abd pain. +liquid BM last night. (Ashleigh Piña) PFSH Past Medical History schizoaffective disorder HTN parkinsonism from antipsychotics Past Surgical History none (Ashleigh Piña) Coded Allergies: milk (Unverified Adverse Reaction, Severe, Diarrhea, 09/30/16) Family History Mom and dad still alive, anxiety and depression Father: unknown Sister, alive and healthy Social History nO ETOH, tobacco, or illicit drugs (Ashleigh Piña) Review of Systems Constitutional: DENIES: Fever Eyes: DENIES: Blurred vision Ears, nose, mouth, throat: DENIES: Hearing loss Respiratory: DENIES: Hemoptysis Cardiovascular: DENIES: Chest pain Gastrointestinal: COMPLAINS OF: Diarrhea, DENIES: Abdominal pain, Black stools , Bloody stools, Constipation, Nausea, Vomiting Genitourinary: DENIES: Hematuria Musculoskeletal: DENIES: Joint Swelling Neurologic: DENIES: Abnormal gait Psychiatric: DENIES: Anxiety (Ashleigh Piña) GI Exam Vitals I&O Vital Signs Date Time Temp Pulse Resp B/P Pulse Ox O2 Delivery O2 Flow Rate FiO2 10/02/16 12:00 97.9 105 18 136/65 97 10/02/16 08:00 98.3 98 16 125/73 98 10/02/16 04:00 98.5 99 18 122/75 96 10/02/16 00:00 99.9 102 20 121/65 96 10/01/16 20:00 99.8 100 20 122/71 96 10/01/16 16:28 97.5 106 22 132/73 96 I/O 10/01/16 10/01/16 10/01/16 10/02/16 10/02/16 10/02/16 07:00 15:00 23:00 07:00 15:00 23:00 Intake Total 0 ml 0 ml 0 ml 600 ml Output Total 650 ml 1125 ml 600 ml 0 ml 250 ml Balance -650 ml -1125 ml -600 ml 0 ml 350 ml Intake Oral 0 ml 0 ml 0 ml 600 ml Output Urine Total 650 ml 1125 ml 600 ml 0 ml 250 ml # Bowel Movements 4 1 0 Imaging Last Impressions Chest X-Ray 10/01/16 0000 Signed Impressions: Service Date/Time: Saturday, October 01, 2016 15:09 - CONCLUSION: Elevation of the right hemidiaphragm with minimal parenchymal changes right base Alexander Ibarra MD FACR Abdomen X-Ray 10/01/16 0000 Signed Impressions: Service Date/Time: Saturday, October 01, 2016 22:27 - CONCLUSION: 1. Persistently dilated small bowel. 2. NG tube with tip in the distal esophagus. Luis E Woods MD Abdomen/Pelvis CT 09/30/16 0016 Signed Impressions: Service Date/Time: Friday, September 30, 2016 01:07 - CONCLUSION: Mild dilation of the distal small bowel loops with a few air-fluid levels. There is also some mild wall thickening of the distal small bowel loops. Moderate amount of stool in the colon. Findings suggest ileus, however an early small bowel obstruction can't be excluded. Recommend serial films. Jose Manuel Patterson MD Laboratory Test 10/02/16 09:14 White Blood Count 7.6 TH/MM3 Red Blood Count 3.82 MIL/MM3 Hemoglobin 11.0 GM/DL Hematocrit 33.8 % Mean Corpuscular Volume 88.3 FL Mean Corpuscular Hemoglobin 28.9 PG Mean Corpuscular Hemoglobin 32.7 % Concent Red Cell Distribution Width 15.8 % Platelet Count 155 TH/MM3 Mean Platelet Volume 9.2 FL Neutrophils (%) (Auto) 57.7 % Lymphocytes (%) (Auto) 23.7 % Monocytes (%) (Auto) 16.2 % Eosinophils (%) (Auto) 2.0 % Basophils (%) (Auto) 0.4 % Neutrophils # (Auto) 4.4 TH/MM3 Lymphocytes # (Auto) 1.8 TH/MM3 Monocytes # (Auto) 1.2 TH/MM3 Eosinophils # (Auto) 0.2 TH/MM3 Basophils # (Auto) 0.0 TH/MM3 CBC Comment DIFF FINAL Differential Comment Sodium Level 142 MEQ/L Potassium Level 3.7 MEQ/L Chloride Level 112 MEQ/L Carbon Dioxide Level 22.0 MEQ/L Anion Gap 8 MEQ/L Blood Urea Nitrogen 6 MG/DL Creatinine 0.96 MG/DL Estimat Glomerular Filtration 102 ML/MIN Rate Random Glucose 80 MG/DL Calcium Level 7.9 MG/DL Total Bilirubin 0.3 MG/DL Aspartate Amino Transf 7 U/L (AST/SGOT) Alanine Aminotransferase 10 U/L (ALT/SGPT) Alkaline Phosphatase 39 U/L Total Protein 6.0 GM/DL Albumin 2.6 GM/DL Date/Time Procedure Status Source Growth 10/01/16 04:50 Influenza Types A,B Antigen (KETAN) - Final Complete Nasal Aspirate NEGATIVE FOR FLU A AND B ANTIGEN.... 10/01/16 00:00 Rotavirus Antigen - Final Complete Stool Stool NEGATIVE - ROTAVIRUS ANTIGEN IS ABSEN... 10/01/16 00:00 Cryptosporidium Exam - Final Complete Stool Stool NEGATIVE - NO CRYPTOSPORIDIUM ANTIGEN... 10/01/16 00:00 Stool Pus (KETAN) - Final Complete Stool Stool RARE WBC 10/01/16 00:00 Giardia Antigen (KETAN) - Final Complete Stool Stool NEGATIVE - NO GIARDIA ANTIGEN DETECTE... 10/01/16 00:00 - Final Complete Stool Stool Campylobacter Species 10/01/16 00:00 Cancelled Stool Stool 09/30/16 23:55 Aerobic Blood Culture - Preliminary Resulted Blood Peripheral NO GROWTH IN 1 DAY 09/30/16 23:55 Anaerobic Blood Culture - Preliminary Resulted Blood Peripheral NO GROWTH IN 1 DAY 09/29/16 22:25 Legionella Antigen - Final Complete Urine Clean Catch PRESUMPTIVE NEGATIVE FOR LEGIONELLA P... 09/29/16 22:25 Streptococcus pneumoniae Antigen (M - Final Complete Urine Clean Catch PRESUMPTIVE NEGATIVE FOR STREPTOCOCCU... Physical Examination HEENT: PERRL normocephalic; atraumatic; no jaundice. CHEST: CTA CARDIAC: RRR ABDOMEN: Soft, mildly distended, nontender; no hepatosplenomegaly; bowel sounds faint EXTREMITIES: No clubbing, cyanosis, or edema. SKIN: Normal; no rash; no jaundice. 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 (Ashleigh Piña) Assessment and Plan Plan ASSESSMENT - ileus - pt presented with n/v/fever/diarrhea and clinically is feeling better , + flatus, + liquid BM, tolerating clears although KUB this afternoon indicated mild worsening. - campylobacter - pt has been treated with abx - CAP, NERIS, schizoaffective disorder- per primary PLAN - continue clears - NGT to LIWS if vomiting recurrs or distention worsens - KUB in a.m. - supportive care - not much more to add - This pt seen by myself and Dr Means and this note is written on his behalf (Ashleigh Piña) Physician Comments Patient seen and examined Agree with above Continue with current supportive care Monitor labs Rather than doing a KUB we will proceed with a small bowel follow-through with Gastrografin so as to rule out small bowel obstruction I noted a couple of air- fluid levels on the KUB today and I think this would be a better direction ( Sherif Means MD) Ashleigh Piña Oct 02, 2016 16:00 Sherif Means MD Oct 02, 2016 17:57
[2016-10-02 20:00] VITALS: BP 126/73; PULSE 96; RESP 16; TEMP 100; O2SAT 95
[2016-10-02] MEDS: LITHIUM CARBONATE 300 MG CAP PO SCH (20:47)
[2016-10-03] VITALS: BP 109/59; PULSE 91; RESP 18; TEMP 99.1; O2SAT 98
[2016-10-03 04:00] VITALS: BP 139/80; PULSE 97; RESP 18; TEMP 99.4; O2SAT 98
[2016-10-03] MEDS: HEPARIN SODIUM - SQ 10,000 UNITS/ML VIAL SQ SCH ×3 (06:00→21:29)
[2016-10-03 08:00] VITALS: BP 123/70; PULSE 80; RESP 20; TEMP 97.7; O2SAT 98
[2016-10-03] MEDS: DOCUSATE SODIUM 50 MG/SENNA 8.6 MG TAB PO SCH ×2 (09:00→21:31)
[2016-10-03] MEDS: SODIUM CHLORIDE 0.9% FLUSH 10 ML FLUSH IV FLUSH SCH ×2 (09:00→21:31)
--- NOTE | 2016-10-03 09:05 | HHI.FPPN ---
Subjective Remarks Feeling well. Abdominal pain improved. Walking without difficulty. Eating clears without difficulty. Had 3 BM x 24 hours, green and semi formed, large amounts. Went for small bowel follow through today. (Patrice Ponce MD, R3) Objective Vitals Vital Signs Date Time Temp Pulse Resp B/P Pulse Ox O2 Delivery O2 Flow Rate FiO2 10/03/16 08:00 97.7 80 20 123/70 98 10/03/16 04:00 99.4 97 18 139/80 98 10/03/16 00:00 99.1 91 18 109/59 98 10/02/16 20:00 100.0 96 16 126/73 95 10/02/16 16:00 98.0 99 18 132/79 98 10/02/16 12:00 97.9 105 18 136/65 97 I/O 10/02/16 10/02/16 10/02/16 10/03/16 10/03/16 10/03/16 06:59 14:59 22:59 06:59 14:59 22:59 Intake Total 0 ml 3853 ml 960 ml 1114 ml Output Total 0 ml 250 ml 320 ml Balance 0 ml 3603 ml 640 ml 1114 ml Intake Oral 0 ml 600 ml 960 ml 250 ml IV Total 3253 ml 864 ml Output Urine Total 0 ml 250 ml 320 ml # Voids 2 # Bowel Movements 0 3 (Patrice Ponce MD, R3) Result Diagram: 10/02/1614 10/02/16 0914 Objective Remarks Last 72 hours Impressions Chest X-Ray 10/01/16 0000 Signed Impressions: Service Date/Time: Saturday, October 01, 2016 15:09 - CONCLUSION: Elevation of the right hemidiaphragm with minimal parenchymal changes right base Alexander Ibarra MD FACR Abdomen X-Ray 10/01/16 0000 Signed Impressions: Service Date/Time: Saturday, October 01, 2016 22:27 - CONCLUSION: 1. Persistently dilated small bowel. 2. NG tube with tip in the distal esophagus. Luis E Woods MD Abdomen X-Ray 10/01/16 0000 Signed Impressions: Service Date/Time: Saturday, October 01, 2016 16:54 - CONCLUSION: 1. The nasogastric tube remains in place with the tip projected over the distal esophagus. 2. The abnormal bowel gas pattern remains. Javier Vega MD Abdomen X-Ray 10/01/16 0000 Signed Impressions: Service Date/Time: Saturday, October 01, 2016 15:10 - CONCLUSION: 1. The nasogastric tube tip is now projected over the distal esophagus and could be advanced approximately 10 cm. 2. Mild interval worsening of abdominal bowel gas pattern. Javier Vega MD Abdomen X-Ray 09/30/16 1400 Signed Impressions: Service Date/Time: Friday, September 30, 2016 14:06 - CONCLUSION: Nonspecific abdominal series with mildly prominent air-filled small bowel. The NG tube tip is in the upper stomach. Luis E Woods MD Abdomen/Pelvis CT 09/30/16 0016 Signed Impressions: Service Date/Time: Friday, September 30, 2016 01:07 - CONCLUSION: Mild dilation of the distal small bowel loops with a few air-fluid levels. There is also some mild wall thickening of the distal small bowel loops. Moderate amount of stool in the colon. Findings suggest ileus, however an early small bowel obstruction can't be excluded. Recommend serial films. Jose Manuel Patterson MD Abdomen X-Ray 09/30/16 0000 Signed Impressions: Service Date/Time: Friday, September 30, 2016 11:59 - CONCLUSION: Borderline distended small bowel. Some degree of ileus or mild obstruction cannot be excluded. NG tube tip is in the mid esophagus. Luis E Woods MD Chest X-Ray 09/29/16 2210 Signed Impressions: Service Date/Time: Thursday, September 29, 2016 22:10 - CONCLUSION: Mild perihilar infiltrates. Luis E Malik MD GENERAL: Diffuse tremors on exam, including his lips, chest, and extremities. SKIN: Cool and clammy. EYES: Equal round and reactive. Some mild scleral icterus. HENT: Normocephalic. Atraumatic. MMM. NECK: No visible JVD or lymphadenopathy. No carotid bruits. CARDIOVASCULAR: Regular rate and rhythm, tachycardia. RESPIRATORY: He to auscultation bilaterally. GASTROINTESTINAL: Abdomen distended, tympanic to percussion. No fluid wave shift. Bowel sounds hypoactive, with occasional high-pitched BS. Less distended. MUSCULOSKELETAL: Strength grossly WNL. BACK: Without obvious deformity. NEURO/PSYCH: Afocal. Awake, alert, and oriented x3. (Patrice Ponce MD, R3) A/P Assessment and Plan 46 year old male presents with fever, bloating, poor appetite, nausea, vomiting , constipation, with CT scan evidence of a developing ileus. + Camplyobacter on stool studies. (Patrice Ponce MD, R3) Attending Attestation Patient seen and examined. Case reviewed and discussed with Dr. Ponce Agree with plan of care as discussed with me and documented in the resident note. Ambulating in the room Feeling better Still having loose stools, but improved SBFT per GI, appreciate recs (Gabriela Jaime MD) Problem List: (1) Community acquired pneumonia Status: Acute Plan: Repeat CXR to assess for CAP. Minimal parenchymal changes at right base on repeat CXR from 10/01. Persistent elevation of right hemidiaphragm. Lung sounds clear. No cough, SOB, or productive sputum. D/c coverage for CAP (rocephin) and continue azithromycin for abdominal Campylobacter infection. (2) Fever Status: Acute Plan: Sepsis resolved. Afebrile. Stool studies ++ Campylobacter. Treat with Azithromycin 250 mg PO daily started on 09/29 -- increase to 500 mg daily. Antibiotics (09/29 --- ) Azithromycin 250 mg PO (09/29 -- ) Ceftriaxone 1 g q 24 iv DISCONTINUED (09/30 --- ) Flagyl 500 mg q 6 iv DISCONTINUED (09/30 -- ) Cipro DISCONTINUED (3) Ileus Status: Acute Plan: Ileus evident on CT scan with a history of chronic constipation. On antipsychotic medications with anticholinergic properties (in particular Clozapine can cause a paralytic ileus). Not on any opiates at home. No history of abdominal surgeries reported. - We will decompress the bowel with an NG tube. Clamp tube 10/01, PO diet today, 10/02. - Serial abdominal exams. - Clear liquid diet. - Monitor electrolytes. -GI consulted agree with management. SB follow through unremarkable. Abd exam improving. If tolerating diet can go home on 10/04. (4) Acute kidney injury Status: Acute Plan: Resolved with IVF. (5) Constipation Status: Chronic Plan: Chronic constipation in the setting of acute ileus. - Zulma-colace 2 tabs bid - Monitor stool output (6) Paranoid schizophrenia Status: Chronic Plan: - Continue home medications: - [place] 300 mg qHS - Clozapine 300 mg daily - Depakote 1000 mg daily (Switch medications to q HS as RN reports fatigue during the day) -Levels within the therapeutic range for both lithium and Depakote. (7) Nutrition, metabolism, and development symptoms Status: Acute Plan: - DC IVF from maintenance to half maintenance (75 ml/hr). - Hypokalemic today at 3.4 will recheck BMP in am. (8) No contraindication to deep vein thrombosis (DVT) prophylaxis Status: Acute Plan: - Heparin 5000 units tid (Patrice Ponce MD, R3) Problem Qualifiers (1) Community acquired pneumonia: Patrice Ponce MD, R3 Oct 03, 2016 09:05 Gabriela Jaime MD Oct 06, 2016 09:49
[2016-10-03 09:14] LABS: AUTOMATED NEUTROPHIL # 2.7 TH/MM3 (1.8-7.7); BASOPHIL % 0.4 % (0.0-2.0); EOSINOPHIL # 0.2 TH/MM3 (0-0.4); EOSINOPHIL % 3.4 % (0.0-4.0); HEMATOCRIT 32.7 % (39.0-51.0); LYMPH % 40.1 % (9.0-44.0); LYMPHOCYTE # 2.7 TH/MM3 (1.0-4.8); MEAN CELL VOLUME 87.4 FL (80.0-100.0); MEAN CORPUSCULAR HEMOGLOBIN 29.2 PG (27.0-34.0); MEAN CORPUSCULAR HGB CONC 33.5 % (32.0-36.0); NEUT % 40.1 % (16.0-70.0); PLATELET COUNT 180 TH/MM3 (150-450); RED BLOOD COUNT 3.75 MIL/MM3 (4.50-5.90); RED CELL DISTRIBUTION WIDTH 15.6 % (11.6-17.2); WHITE BLOOD COUNT 6.6 TH/MM3 (4.0-11.0)
[2016-10-03 09:26] LABS: BICARBONATE 22.7 MEQ/L (21.0-32.0); POTASSIUM 3.4 MEQ/L (3.5-5.1)
[2016-10-03] MEDS ORDERED: DIATRIZOATE MEGLUM/DIATRIZOATE SOD 120 ML BTL (for RAD DIAG) PO ONE (09:30)
[2016-10-03 09:38] LABS: HEMO FLAGS AUTO DIFF
[2016-10-03 11:16] LABS: BANDS 16 % (0-6); BLASTS 1 % (0-0); CORRECTED NUCLEATED RBC 1 /100 WBC (0-0); METAMYELOCYTES 2 % (0-1); NEUTROPHIL # MANUAL DIFF 3.6 TH/MM3 (1.8-7.7); POLYS (SEG NEUTROPHILS) 37 % (16-70); WBC DIFF SAMPLE 100
[2016-10-03 11:17] LABS: PLATELET ESTIMATE SMEAR NORMAL (NORMAL); PLATELET MORPHOLOGY NORMAL (NORMAL); SCAN/DIFF FINAL DIFF MANUAL
[2016-10-03 12:00] VITALS: BP 136/84; PULSE 112; RESP 20; TEMP 98.4; O2SAT 97
--- NOTE | 2016-10-03 12:12 | RADRPT ---
EXAM DATE/TIME: 10/03/2016 09:24 [facility] COMPARISON: No previous studies available for comparison. INDICATIONS : Irregular bowel movements. Evaluate ileus versus obstrcuction. FLUORO TIME: 0.2 minutes IMAGE COUNT: 16 CONTRAST: [facility] IMAGING TIME(S): 15 min, 30 min, 30 min, 45min, 1 hr., 1.5 hr. MEDICAL HISTORY : Gastroesophageal reflux disease. Hypertension. SURGICAL HISTORY : None. ENCOUNTER: Initial ACUITY: 3 days PAIN SCORE: 0/10 LOCATION: Bilateral abdomen. FINDINGS: Preliminary film is unremarkable. The stomach is grossly unremarkable. Examination of the small bowel demonstrates normal mucosal pattern involving the jejunum and ileum. There is no evidence of mass or obstruction. No intraluminal filling defects are identified. Small bowel transit time is normal at 90 minutes. Fluoroscopy of the abdomen and terminal ileum demonstrat es no abnormality. CONCLUSION: Unremarkable small bowel examination. Javier Vega MD on October 03, 2016 at 12:06 Board Certified Radiologist. This report was verified electronically.
[2016-10-03] MEDS: AZITHROMYCIN 250 MG TAB PO SCH (13:00)
[2016-10-03] MEDS: PANTOPRAZOLE SOD 40 MG DELAYED RELEASE TAB PO SCH (13:00)
--- NOTE | 2016-10-03 14:27 | HHI.GIFU ---
Subjective Remarks Pt resting in bed. NO complaints, looking forward to turkey and mashed potato dinner. (Ashleigh Piña) Objective Vitals I&O Vital Signs Date Time Temp Pulse Resp B/P Pulse Ox O2 Delivery O2 Flow Rate FiO2 10/03/16 12:00 98.4 112 20 136/84 97 10/03/16 08:00 97.7 80 20 123/70 98 10/03/16 04:00 99.4 97 18 139/80 98 10/03/16 00:00 99.1 91 18 109/59 98 10/02/16 20:00 100.0 96 16 126/73 95 10/02/16 16:00 98.0 99 18 132/79 98 I/O 10/02/16 10/02/16 10/02/16 10/03/16 10/03/16 10/03/16 06:59 14:59 22:59 06:59 14:59 22:59 Intake Total 0 ml 3853 ml 960 ml 1114 ml 960 ml Output Total 0 ml 250 ml 320 ml Balance 0 ml 3603 ml 640 ml 1114 ml 960 ml Intake Oral 0 ml 600 ml 960 ml 250 ml 960 ml IV Total 3253 ml 864 ml Output Urine Total 0 ml 250 ml 320 ml # Voids 2 5 # Bowel Movements 0 3 4 Laboratory Laboratory Tests Test 10/03/16 07:15 White Blood Count 6.6 Red Blood Count 3.75 Hemoglobin 11.0 Hematocrit 32.7 Mean Corpuscular Volume 87.4 Mean Corpuscular Hemoglobin 29.2 Mean Corpuscular Hemoglobin 33.5 Concent Red Cell Distribution Width 15.6 Platelet Count 180 Mean Platelet Volume 9.7 Neutrophils (%) (Auto) 40.1 Lymphocytes (%) (Auto) 40.1 Monocytes (%) (Auto) 16.0 Eosinophils (%) (Auto) 3.4 Basophils (%) (Auto) 0.4 Neutrophils # (Auto) 2.7 Lymphocytes # (Auto) 2.7 Monocytes # (Auto) 1.1 Eosinophils # (Auto) 0.2 Basophils # (Auto) 0.0 CBC Comment AUTO DIFF Differential Total Cells 100 Counted Neutrophils % (Manual) 37 Band Neutrophils % 16 Lymphocytes % 32 Monocytes % 12 Neutrophils # (Manual) 3.6 Metamyelocytes 2 Nucleated Red Blood Cells 1 Differential Comment FINAL DIFF MANUAL Blastocytes 1 Platelet Estimate NORMAL Platelet Morphology Comment NORMAL Red Cell Morphology Comment NORMAL Sodium Level 143 Potassium Level 3.4 Chloride Level 113 Carbon Dioxide Level 22.7 Anion Gap 7 Blood Urea Nitrogen 4 Creatinine 0.80 Estimat Glomerular Filtration 126 Rate Random Glucose 87 Calcium Level 7.7 Date/Time Procedure Status Source Growth 10/01/16 04:50 Influenza Types A,B Antigen (KETAN) - Final Complete Nasal Aspirate NEGATIVE FOR FLU A AND B ANTIGEN.... 10/01/16 00:00 Rotavirus Antigen - Final Complete Stool Stool NEGATIVE - ROTAVIRUS ANTIGEN IS ABSEN... 10/01/16 00:00 Cryptosporidium Exam - Final Complete Stool Stool NEGATIVE - NO CRYPTOSPORIDIUM ANTIGEN... 10/01/16 00:00 Stool Pus (KETAN) - Final Complete Stool Stool RARE WBC 10/01/16 00:00 Giardia Antigen (KETAN) - Final Complete Stool Stool NEGATIVE - NO GIARDIA ANTIGEN DETECTE... 10/01/16 00:00 - Final Complete Stool Stool Campylobacter Species 10/01/16 00:00 Cancelled Stool Stool 09/30/16 23:55 Aerobic Blood Culture - Preliminary Resulted Blood Peripheral NO GROWTH IN 2 DAYS 09/30/16 23:55 Anaerobic Blood Culture - Preliminary Resulted Blood Peripheral NO GROWTH IN 2 DAYS 09/29/16 22:25 Legionella Antigen - Final Complete Urine Clean Catch PRESUMPTIVE NEGATIVE FOR LEGIONELLA P... 09/29/16 22:25 Streptococcus pneumoniae Antigen (M - Final Complete Urine Clean Catch PRESUMPTIVE NEGATIVE FOR STREPTOCOCCU... Imaging Last Impressions Small Bowel X-Ray 10/03/16 0000 Signed Impressions: Service Date/Time: Monday, October 03, 2016 09:24 - CONCLUSION: Unremarkable small bowel examination. Javier Vega MD Chest X-Ray 10/01/16 0000 Signed Impressions: Service Date/Time: Saturday, October 01, 2016 15:09 - CONCLUSION: Elevation of the right hemidiaphragm with minimal parenchymal changes right base Alexander Ibarra MD FACR Abdomen X-Ray 10/01/16 0000 Signed Impressions: Service Date/Time: Saturday, October 01, 2016 22:27 - CONCLUSION: 1. Persistently dilated small bowel. 2. NG tube with tip in the distal esophagus. Luis E Woods MD Abdomen/Pelvis CT 09/30/16 0016 Signed Impressions: Service Date/Time: Friday, September 30, 2016 01:07 - CONCLUSION: Mild dilation of the distal small bowel loops with a few air-fluid levels. There is also some mild wall thickening of the distal small bowel loops. Moderate amount of stool in the colon. Findings suggest ileus, however an early small bowel obstruction can't be excluded. Recommend serial films. Jose Manuel Patterson MD Physical Exam HEENT: PERRL; normocephalic; atraumatic; no jaundice. CHEST: CTA CARDIAC: RRR ABDOMEN: Soft, mildly distended, nontender; no hepatosplenomegaly; bowel sounds are present in all four quadrants. EXTREMITIES: No clubbing, cyanosis, or edema. SKIN: Normal; no rash; no jaundice. 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 (Ashleigh Piña) Assessment and Plan Plan ASSESSMENT - ileus - pt presented with n/v/fever/diarrhea and clinically is feeling better , + flatus, + liquid BM, tolerating clears although KUB this afternoon indicated mild worsening. SBFT unremarkable. - campylobacter - pt has been treated with abx - CAP, NERIS, schizoaffective disorder- per primary PLAN - regular diet, will see how he does - supportive care - not much more to add - This pt seen by myself and Dr Means and this note is written on his behalf (Ashleigh Piña) Physician Comments Patient seen and examined agree with above Continue with current supportive care Monitor labs Not much to add from a GI standpoint we will sign off (Sherif Means MD ) Ashleigh Piña Oct 03, 2016 14:27 Sherif Means MD Oct 03, 2016 20:45
[2016-10-03 16:00] VITALS: BP 130/82; PULSE 105; RESP 20; TEMP 98; O2SAT 98
[2016-10-03 20:00] VITALS: BP 137/80; PULSE 74; RESP 18; TEMP 97.6; O2SAT 99
[2016-10-03] MEDS ORDERED: cloZAPine 100 MG TAB PO SCH (21:00)
[2016-10-03] MEDS ORDERED: DIVALPROEX SODIUM E.R. 500 MG TAB PO SCH (21:00)
[2016-10-03] MEDS: LITHIUM CARBONATE 300 MG CAP PO SCH (21:30)
[2016-10-04] VITALS: BP 145/85; PULSE 86; RESP 19; TEMP 97; O2SAT 100
[2016-10-04 04:00] VITALS: BP 142/72; PULSE 93; RESP 18; TEMP 97.5; O2SAT 99
--- NOTE | 2016-10-04 06:11 | HHI.FPPN ---
Subjective Remarks Patient feeling much better today, tolerated full meals yesterday. Ate turkey sandwiches, meat loaf, carrots, Jell-O, without difficulty. He reports that his abdominal pain is improved. He denies any fevers or chills. (Patrice Ponce MD, R3) Objective Vitals Vital Signs Date Time Temp Pulse Resp B/P Pulse Ox O2 Delivery O2 Flow Rate FiO2 10/04/16 04:00 97.5 93 18 142/72 99 10/04/16 00:00 97.0 86 19 145/85 100 10/03/16 20:00 97.6 74 18 137/80 99 10/03/16 16:00 98.0 105 20 130/82 98 10/03/16 12:00 98.4 112 20 136/84 97 10/03/16 08:00 97.7 80 20 123/70 98 I/O 10/03/16 10/03/16 10/03/16 10/04/16 10/04/16 10/04/16 07:00 15:00 23:00 07:00 15:00 23:00 Intake Total 1114 ml 1920 ml 960 ml Balance 1114 ml 1920 ml 960 ml Intake Oral 250 ml 1920 ml 960 ml IV Total 864 ml # Voids 2 6 3 # Bowel Movements 3 4 2 (Patrice Ponce MD, R3) Result Diagram: 10/03/16 0715 10/03/16 0715 Objective Remarks Last 72 hours Impressions Chest X-Ray 10/01/16 0000 Signed Impressions: Service Date/Time: Saturday, October 01, 2016 15:09 - CONCLUSION: Elevation of the right hemidiaphragm with minimal parenchymal changes right base Alexander Ibarra MD FACR Abdomen X-Ray 10/01/16 0000 Signed Impressions: Service Date/Time: Saturday, October 01, 2016 22:27 - CONCLUSION: 1. Persistently dilated small bowel. 2. NG tube with tip in the distal esophagus. Luis E Woods MD Abdomen X-Ray 10/01/16 0000 Signed Impressions: Service Date/Time: Saturday, October 01, 2016 16:54 - CONCLUSION: 1. The nasogastric tube remains in place with the tip projected over the distal esophagus. 2. The abnormal bowel gas pattern remains. Javier Vega MD Abdomen X-Ray 10/01/16 0000 Signed Impressions: Service Date/Time: Saturday, October 01, 2016 15:10 - CONCLUSION: 1. The nasogastric tube tip is now projected over the distal esophagus and could be advanced approximately 10 cm. 2. Mild interval worsening of abdominal bowel gas pattern. Javier Vega MD Abdomen X-Ray 09/30/16 1400 Signed Impressions: Service Date/Time: Friday, September 30, 2016 14:06 - CONCLUSION: Nonspecific abdominal series with mildly prominent air-filled small bowel. The NG tube tip is in the upper stomach. Luis E Woods MD Abdomen/Pelvis CT 09/30/16 0016 Signed Impressions: Service Date/Time: Friday, September 30, 2016 01:07 - CONCLUSION: Mild dilation of the distal small bowel loops with a few air-fluid levels. There is also some mild wall thickening of the distal small bowel loops. Moderate amount of stool in the colon. Findings suggest ileus, however an early small bowel obstruction can't be excluded. Recommend serial films. Jose Manuel Patterson MD Abdomen X-Ray 09/30/16 0000 Signed Impressions: Service Date/Time: Friday, September 30, 2016 11:59 - CONCLUSION: Borderline distended small bowel. Some degree of ileus or mild obstruction cannot be excluded. NG tube tip is in the mid esophagus. Luis E Woods MD Chest X-Ray 09/29/16 2210 Signed Impressions: Service Date/Time: Thursday, September 29, 2016 22:10 - CONCLUSION: Mild perihilar infiltrates. Luis E Malik MD GENERAL: Diffuse tremors on exam, including his lips, chest, and extremities. SKIN: Cool and clammy. EYES: Equal round and reactive. Some mild scleral icterus. HENT: Normocephalic. Atraumatic. MMM. NECK: No visible JVD or lymphadenopathy. No carotid bruits. CARDIOVASCULAR: Regular rate and rhythm, tachycardia. RESPIRATORY: He to auscultation bilaterally. GASTROINTESTINAL: Abdomen minimally distended. No fluid wave shift. Bowel sounds within normal limits. MUSCULOSKELETAL: Strength grossly WNL. BACK: Without obvious deformity. NEURO/PSYCH: Afocal. Awake, alert, and oriented x3. (Patrice Ponce MD, R3) A/P Assessment and Plan 46 year old male presents with fever, bloating, poor appetite, nausea, vomiting , constipation, with CT scan evidence of a developing ileus. + Camplyobacter on stool studies. (Patrice Ponce MD, R3) Attending Attestation Patient seen and examined. Case reviewed and discussed with Dr. Ponce Agree with plan of care as discussed with me and documented in the resident note. discharge planning, patient significantly improved, tolerating his diet. wants to go home (Gabriela Jaime MD) Problem List: (1) Community acquired pneumonia Status: Acute Plan: Repeat CXR to assess for CAP. Minimal parenchymal changes at right base on repeat CXR from 10/01. Persistent elevation of right hemidiaphragm. Lung sounds clear. No cough, SOB, or productive sputum. D/c coverage for CAP (rocephin) and continue azithromycin for abdominal Campylobacter infection. (2) Fever Status: Acute Plan: Sepsis resolved. Afebrile. Stool studies ++ Campylobacter. Treat with Azithromycin 250 mg PO daily started on 09/29 -- increase to 500 mg daily. Has completed a 5 day course. Antibiotics (09/29 --- ) Azithromycin 250 mg PO (09/29 -- ) Ceftriaxone 1 g q 24 iv DISCONTINUED (09/30 --- ) Flagyl 500 mg q 6 iv DISCONTINUED (09/30 -- ) Cipro DISCONTINUED (3) Ileus Status: Acute Plan: Ileus evident on CT scan with a history of chronic constipation. On antipsychotic medications with anticholinergic properties (in particular Clozapine can cause a paralytic ileus). Not on any opiates at home. No history of abdominal surgeries reported. -Resolved. Small bowel follow-through showed no abnormalities. -GI consulted agree with management. SB follow through unremarkable. Abd exam improving. If tolerating diet can go home on 10/04. (4) Acute kidney injury Status: Acute Plan: Resolved with IVF. (5) Constipation Status: Chronic Plan: Chronic constipation in the setting of acute ileus. - Zulma-colace 2 tabs bid - Monitor stool output (6) Paranoid schizophrenia Status: Chronic Plan: - Continue home medications: - [place] 300 mg qHS - Clozapine 300 mg daily - Depakote 1000 mg daily (Switch medications to q HS as RN reports fatigue during the day) -Levels within the therapeutic range for both lithium and Depakote. (7) Nutrition, metabolism, and development symptoms Status: Acute Plan: - DC IVF - Hypokalemic today at 3.4 on 10/03 (8) No contraindication to deep vein thrombosis (DVT) prophylaxis Status: Acute Plan: - Heparin 5000 units tid (Patrice Ponce MD, R3) Problem Qualifiers (1) Community acquired pneumonia: Patrice Ponce MD, R3 Oct 04, 2016 06:11 Gabriela Jaime MD Oct 06, 2016 09:48
[2016-10-04] MEDS: HEPARIN SODIUM - SQ 10,000 UNITS/ML VIAL SQ SCH (06:33)
[2016-10-04 08:00] VITALS: BP 127/80; PULSE 82; RESP 18; TEMP 97.6; O2SAT 97
--- NOTE | 2016-10-04 08:23 | HHI.GIFU ---
Subjective Remarks Resting in bed. Denies nausea/vomiting. Looking forward to breakfast. Denies abdominal pain. Multiple bowel movements last night- states he has not yet gone today, although there are 3 documented overnight. Objective Vitals I&O Vital Signs Date Time Temp Pulse Resp B/P Pulse Ox O2 Delivery O2 Flow Rate FiO2 10/04/16 04:00 97.5 93 18 142/72 99 10/04/16 00:00 97.0 86 19 145/85 100 10/03/16 20:00 97.6 74 18 137/80 99 10/03/16 16:00 98.0 105 20 130/82 98 10/03/16 12:00 98.4 112 20 136/84 97 I/O 10/03/16 10/03/16 10/03/16 10/04/16 10/04/16 10/04/16 07:00 15:00 23:00 07:00 15:00 23:00 Intake Total 1114 ml 1920 ml 960 ml Balance 1114 ml 1920 ml 960 ml Intake Oral 250 ml 1920 ml 960 ml IV Total 864 ml # Voids 2 6 3 3 # Bowel Movements 3 4 2 3 Laboratory Date/Time Procedure Status Source Growth 10/01/16 04:50 Influenza Types A,B Antigen (KETAN) - Final Complete Nasal Aspirate NEGATIVE FOR FLU A AND B ANTIGEN.... 10/01/16 00:00 Rotavirus Antigen - Final Complete Stool Stool NEGATIVE - ROTAVIRUS ANTIGEN IS ABSEN... 10/01/16 00:00 Cryptosporidium Exam - Final Complete Stool Stool NEGATIVE - NO CRYPTOSPORIDIUM ANTIGEN... 10/01/16 00:00 Stool Pus (KETAN) - Final Complete Stool Stool RARE WBC 10/01/16 00:00 Giardia Antigen (KETAN) - Final Complete Stool Stool NEGATIVE - NO GIARDIA ANTIGEN DETECTE... 10/01/16 00:00 - Final Complete Stool Stool Campylobacter Species 10/01/16 00:00 Cancelled Stool Stool 09/30/16 23:55 Aerobic Blood Culture - Preliminary Resulted Blood Peripheral NO GROWTH IN 2 DAYS 09/30/16 23:55 Anaerobic Blood Culture - Preliminary Resulted Blood Peripheral NO GROWTH IN 2 DAYS 09/29/16 22:25 Legionella Antigen - Final Complete Urine Clean Catch PRESUMPTIVE NEGATIVE FOR LEGIONELLA P... 09/29/16 22:25 Streptococcus pneumoniae Antigen (M - Final Complete Urine Clean Catch PRESUMPTIVE NEGATIVE FOR STREPTOCOCCU... Imaging Last Impressions Small Bowel X-Ray 10/03/16 0000 Signed Impressions: Service Date/Time: Monday, October 03, 2016 09:24 - CONCLUSION: Unremarkable small bowel examination. Javier Vega MD Chest X-Ray 10/01/16 0000 Signed Impressions: Service Date/Time: Saturday, October 01, 2016 15:09 - CONCLUSION: Elevation of the right hemidiaphragm with minimal parenchymal changes right base Alexander Ibarra MD FACR Abdomen X-Ray 10/01/16 0000 Signed Impressions: Service Date/Time: Saturday, October 01, 2016 22:27 - CONCLUSION: 1. Persistently dilated small bowel. 2. NG tube with tip in the distal esophagus. Luis E Woods MD Abdomen/Pelvis CT 09/30/16 0016 Signed Impressions: Service Date/Time: Friday, September 30, 2016 01:07 - CONCLUSION: Mild dilation of the distal small bowel loops with a few air-fluid levels. There is also some mild wall thickening of the distal small bowel loops. Moderate amount of stool in the colon. Findings suggest ileus, however an early small bowel obstruction can't be excluded. Recommend serial films. Jose Manuel Patterson MD Physical Exam HEENT: Normocephalic; atraumatic; no jaundice. CHEST: CTA CARDIAC: RRR ABDOMEN: Soft, nondistended, nontender; no hepatosplenomegaly; bowel sounds are present in all four quadrants. EXTREMITIES: BLE edema. SKIN: Normal; no rash; no jaundice. STATISTICS INTERN: No focal deficits; lethargic and oriented times three. Assessment and Plan Plan ASSESSMENT - Ileus. Abdomen/Pelvis CT (09/30/16)----> Mild dilation of the distal small bowel loops with a few air-fluid levels. There is also some mild wall thickening of the distal small bowel loops. Moderate amount of stool in the colon. Findings suggest ileus, however an early small bowel obstruction can't be excluded. Recommend serial films. Small Bowel X-Ray (10/03/16)-----> Unremarkable small bowel examination. Clinically improved. Multiple bowel movements. Abdomen soft, nontender, tolerating po. - Campylobacter infection with n/v/diarrhea. Clinically improved. Azithromycin - CAP, Azithromycin. - NERIS, resolved - Schizoaffective disorder- per primary PLAN - MIQUEL - Azithromycin - GI will sign off, please reconsult as needed - This pt seen by myself and Dr Hunt and this note is written on his behalf Juju Khan Oct 04, 2016 08:23
[2016-10-04] MEDS: PANTOPRAZOLE SOD 40 MG DELAYED RELEASE TAB PO SCH (08:48)
[2016-10-04] MEDS: AZITHROMYCIN 250 MG TAB PO SCH (08:48)
[2016-10-04] MEDS: SODIUM CHLORIDE 0.9% FLUSH 10 ML FLUSH IV FLUSH SCH (08:48)
[2016-10-04] MEDS: DOCUSATE SODIUM 50 MG/SENNA 8.6 MG TAB PO SCH (08:48)
[2016-10-04] MEDS ORDERED: SENN1TAB PO (09:38)
[2016-10-04] MEDS ORDERED: MAGN400S PO (09:38)
[2016-10-04] MEDS ORDERED: PANT40TA3 PO (09:38)
--- NOTE | 2016-10-04 09:40 | HHI.DCPOC ---
Discharge Care Plan Diagnosis: (1) Chronic constipation (2) Ileus (3) Fever (4) Acute kidney injury (5) Paranoid schizophrenia Goals to Promote Your Health * To prevent worsening of your condition and complications * To maintain your health at the optimal level Directions to Meet Your Goals Take your medications as prescribed Follow your dietary instruction Follow activity as directed Keep your appointments as scheduled Take your immunizations and boosters as scheduled If your symptoms worsen call your PCP, if no PCP go to Urgent Care Center or Emergency Room Smoking is Dangerous to Your Health. Avoid second hand smoke Call the 24-hour hour crisis hotline for domestic abuse at Patrice Ponce MD, R3 Oct 04, 2016 09:40
--- NOTE | 2016-10-05 00:29 | HHI.DS ---
Discharge Summary Admission Date Sep 30, 2016 at 02:14 Admitting Diagnosis Pneumonia, Ileus, bandemia (1) Community acquired pneumonia Plan: Repeat CXR to assess for CAP. Minimal parenchymal changes at right base on repeat CXR from 10/01. Persistent elevation of right hemidiaphragm. Lung sounds clear. No cough, SOB, or productive sputum. D/c coverage for CAP (rocephin) and continue azithromycin for abdominal Campylobacter infection. (2) Fever Plan: Sepsis resolved. Afebrile. Stool studies ++ Campylobacter. Treat with Azithromycin 250 mg PO daily started on 09/29 -- increase to 500 mg daily. Has completed a 5 day course. Antibiotics (09/29 --- ) Azithromycin 250 mg PO (09/29 -- ) Ceftriaxone 1 g q 24 iv DISCONTINUED (09/30 --- ) Flagyl 500 mg q 6 iv DISCONTINUED (09/30 -- ) Cipro DISCONTINUED (3) Ileus Plan: Ileus evident on CT scan with a history of chronic constipation. On antipsychotic medications with anticholinergic properties (in particular Clozapine can cause a paralytic ileus). Not on any opiates at home. No history of abdominal surgeries reported. -Resolved. Small bowel follow-through showed no abnormalities. -GI consulted agree with management. SB follow through unremarkable. Abd exam improving. If tolerating diet can go home on 10/04. (4) Acute kidney injury Plan: Resolved with IVF. (5) Constipation Plan: Chronic constipation in the setting of acute ileus. - Zulma-colace 2 tabs bid - Monitor stool output (6) Paranoid schizophrenia Plan: - Continue home medications: - [place] 300 mg qHS - Clozapine 300 mg daily - Depakote 1000 mg daily (Switch medications to q HS as RN reports fatigue during the day) -Levels within the therapeutic range for both lithium and Depakote. (7) Nutrition, metabolism, and development symptoms Plan: - DC IVF - Hypokalemic today at 3.4 on 10/03 (8) No contraindication to deep vein thrombosis (DVT) prophylaxis Plan: - Heparin 5000 units tid Brief History 46 year old male presents with fever, loss of appetite, vomiting, constipation, and bloating that started yesterday. He has a history of chronic constipation. He had 3 episodes of vomiting yesterday. Vomitus was not bilious. Fevers started yesterday with Tmax of 102.6 measured at home. Tmax in ED is 101.6. He has diffuse mild crampy lower abdominal pain. He gets full easily after eating a meal. He also has a mild headache. His fiance is present and had fever and vomiting a few days ago, that quickly resolved. He does not have any diarrhea. His last bowel movement was 2 days ago and normal. He has no runny nose, sore throat, coughing, difficulty breathing, chest pain, or calf tenderness. He has no recent medication changes. He is only eating about half his normal diet due to loss of appetite. No unintentional weight loss or night sweats. He takes lithium, clozapine, and Depakote for schizoaffective disorder. CBC/BMP: 10/03/16 0715 10/03/16 0715 Significant Findings Laboratory Tests Test 10/02/16 10/03/16 09:14 07:15 Red Blood Count 3.82 MIL/MM3 3.75 MIL/MM3 (4.50-5.90) (4.50-5.90) Hemoglobin 11.0 GM/DL 11.0 GM/DL (13.0-17.0) (13.0-17.0) Hematocrit 33.8 % 32.7 % (39.0-51.0) (39.0-51.0) Monocytes (%) (Auto) 16.2 % 16.0 % (0.0-8.0) (0.0-8.0) Monocytes # (Auto) 1.2 TH/MM3 1.1 TH/MM3 (0-0.9) (0-0.9) Chloride Level 112 MEQ/L 113 MEQ/L (98-107) (98-107) Blood Urea Nitrogen 6 MG/DL (7-18) 4 MG/DL (7-18) Calcium Level 7.9 MG/DL 7.7 MG/DL (8.5-10.1) (8.5-10.1) Aspartate Amino Transf 7 U/L (15-37) (AST/SGOT) Alanine Aminotransferase 10 U/L (12-78) (ALT/SGPT) Alkaline Phosphatase 39 U/L (45-117) Total Protein 6.0 GM/DL (6.4-8.2) Albumin 2.6 GM/DL (3.4-5.0) Band Neutrophils % 16 % (0-6) Monocytes % 12 % (0-8) Metamyelocytes 2 % (0-1) Nucleated Red Blood Cells 1 /100 WBC (0-0) Blastocytes 1 % (0-0) Potassium Level 3.4 MEQ/L (3.5-5.1) PE at Discharge Last 72 hours Impressions Chest X-Ray 10/01/16 0000 Signed Impressions: Service Date/Time: Saturday, October 01, 2016 15:09 - CONCLUSION: Elevation of the right hemidiaphragm with minimal parenchymal changes right base Alexander Ibarra MD FACR Abdomen X-Ray 10/01/16 0000 Signed Impressions: Service Date/Time: Saturday, October 01, 2016 22:27 - CONCLUSION: 1. Persistently dilated small bowel. 2. NG tube with tip in the distal esophagus. Luis E Woods MD Abdomen X-Ray 10/01/16 0000 Signed Impressions: Service Date/Time: Saturday, October 01, 2016 16:54 - CONCLUSION: 1. The nasogastric tube remains in place with the tip projected over the distal esophagus. 2. The abnormal bowel gas pattern remains. Javier Vega MD Abdomen X-Ray 10/01/16 0000 Signed Impressions: Service Date/Time: Saturday, October 01, 2016 15:10 - CONCLUSION: 1. The nasogastric tube tip is now projected over the distal esophagus and could be advanced approximately 10 cm. 2. Mild interval worsening of abdominal bowel gas pattern. Javier Vega MD Abdomen X-Ray 09/30/16 1400 Signed Impressions: Service Date/Time: Friday, September 30, 2016 14:06 - CONCLUSION: Nonspecific abdominal series with mildly prominent air-filled small bowel. The NG tube tip is in the upper stomach. Luis E Woods MD Abdomen/Pelvis CT 09/30/16 0016 Signed Impressions: Service Date/Time: Friday, September 30, 2016 01:07 - CONCLUSION: Mild dilation of the distal small bowel loops with a few air-fluid levels. There is also some mild wall thickening of the distal small bowel loops. Moderate amount of stool in the colon. Findings suggest ileus, however an early small bowel obstruction can't be excluded. Recommend serial films. Jose Manuel Patterson MD Abdomen X-Ray 09/30/16 0000 Signed Impressions: Service Date/Time: Friday, September 30, 2016 11:59 - CONCLUSION: Borderline distended small bowel. Some degree of ileus or mild obstruction cannot be excluded. NG tube tip is in the mid esophagus. Luis E Woods MD Chest X-Ray 09/29/16 2210 Signed Impressions: Service Date/Time: Thursday, September 29, 2016 22:10 - CONCLUSION: Mild perihilar infiltrates. Luis E Malik MD GENERAL: Diffuse tremors on exam, including his lips, chest, and extremities. SKIN: Cool and clammy. EYES: Equal round and reactive. Some mild scleral icterus. HENT: Normocephalic. Atraumatic. MMM. NECK: No visible JVD or lymphadenopathy. No carotid bruits. CARDIOVASCULAR: Regular rate and rhythm, tachycardia. RESPIRATORY: He to auscultation bilaterally. GASTROINTESTINAL: Abdomen minimally distended. No fluid wave shift. Bowel sounds within normal limits. MUSCULOSKELETAL: Strength grossly WNL. BACK: Without obvious deformity. NEURO/PSYCH: Afocal. Awake, alert, and oriented x3. Hospital Course Mr. Galaviz was admitted after having 3 days of nausea, vomiting, abdominal pain , and fevers to 102.6. He was diagnosed with a partial SBO via CT scan. An NG tube was placed, IV fluids started, and he was made NPO. He spent approximately 5 days in the hospital until he could tolerate PO intake. His fevers resolved. He was also continued on his home antipsychotics including depakote, clozapine, and lithium. His mood was stable throughout admission. He was discharged home in stable condition. Pt Condition on Discharge: Good Discharge Disposition: Discharge Home Discharge Instructions DIET: Follow Instructions for: As Tolerated, No Restrictions Activities you can perform: Regular-No Restrictions New Medications: Magnesium Hydroxide (Eq Milk of Magnesia) 1,200 Mg/15 Ml Maria Guadalupe 30 ML PO Q12H PRN for MILD - MODERATE CONSTIPATION, #120 ML Sennosides-Docusate Sodium (Senna Plus 8.6-50 mg) 1 Tab Tab 2 TAB PO BID, #90 TAB Continued Medications: Clozapine (Clozapine) 200 Mg Tab 50 MG PO DAILY, TAB Clozapine (Clozapine) 200 Mg Tab 300 MG PO HS, TAB Divalproex ER 500 mg (Depakote ER 500 mg) 500 Mg Caro 1000 MG PO HS Divalproex ER 500 mg (Depakote ER 500 mg) 500 Mg Tab 1 TAB PO DAILY, TAB Lactulose (Lactulose) 30 Ml Syrp 30 ML PO DAILY, ML [place] Carbonate (Lithotabs) 300 Mg Tab 300 MG PO DAILY, TAB Discontinued Medications: Clozapine (Clozapine) 100 Mg Tab 300 MG PO DAILY for Schizophrenia, TAB 0 Refills Divalproex ER (Depakote ER) 500 Mg Caro 1000 MG PO DAILY for Control Seizures, #60 TAB 0 Refills Docusate Sod/Senna (Senna Plus 8.6-50 mg) 1 Tab Tab 1 TAB PO DAILY, #30 11 Refills Ibuprofen (Ibuprofen) 800 Mg Tab 800 MG PO Q6H PRN for PAIN SCALE 6 TO 10, #90 TAB 2 Refills Paliperidone Palmitate (Invega Sustenna) 156 Mg/Ml Inj 156 MG IM Q28D, INJ *FOR INTRAMUSCULAR USE ONLY* Patrice Ponce MD, R3 Oct 05, 2016 00:29
[2016-10-06] MEDS ORDERED: PANT40TA3 PO (15:27)
[2016-11-21] MEDS ORDERED: PANT40TA3 PO (10:51)
== END 2016-10-04 14:00 | disposition home or self-care (01) | DRG 871 ==
LOC: NEPC 19:30 → NEDA 09-30 02:14 → OBSVTOIN 09-30 02:14 → HOCA 09-30 05:15
PROVIDERS: ADMIT Family Medicine; ATTEND Family Medicine
DX: A41.9 Sepsis, unspecified organism (principal); J18.9 Pneumonia, unspecified organism; N17.9 Acute kidney failure, unspecified; D69.6 Thrombocytopenia, unspecified; G21.11 Neuroleptic induced parkinsonism; K56.7 Ileus, unspecified; A04.5 Campylobacter enteritis; F20.0 Paranoid schizophrenia; E87.5 Hyperkalemia; E86.0 Dehydration; R63.0 Anorexia; I10 Essential (primary) hypertension; K21.9 Gastro-esophageal reflux disease without esophagitis; T43.595A Adverse effect of other antipsychotics and neuroleptics, initial encounter; E87.6 Hypokalemia; Z81.8 Family history of other mental and behavioral disorders; Z91.011 Allergy to milk products
CPT/HCPCS: 71010; 74000; 74020; 74177; 74250; 80048; 80053; 80164; 80178; 81001; 83036; 83605; 83690; 83735; 84443; 85007; 85025; 85027; 87015; 87040; 87205; 87328; 87329; 87425; 87449; 87493; 87506; 87804; 93005; 94150; 96361; 96365; 96375; 96376; J0131; J0456; J0696; J0744; J1644; J2405; J7030; J7040; J7050; Q9963; Q9967